=== PATIENT | female | born 1945 | race Caucasian/White ===

== ENCOUNTER → 2017-06-19 | Outpatient (CLI) | payer MEDICARE, MEDICAID ==
[~2017-06-19] MED LIST: /ADVA50050; /ADVA50050 IN; /ESOM40CA OR; /FEXO18TA OR; /FEXO18TA PO; /PANT40TA; ADV500INH INH; ADVAIR INH; ALBU83IN; AMLO5TAB2 PO; BIMA01SOL OU; BRIM1OPD; BRIM1OPD OU; BYST5TAB2 PO; CALCCHW12 OR; CLARINEX; CLOP75TA2 PO; COLA100C2; COLA100C2 PO; DOCU100C16 PO; DOXY100T PO; FERR32TA PO; GLUC1000; HYDR25TA6; HYZAAR; Hyzaar PO; LEVA250T; LEVAINH INH; LOSA100T36 PO; MAG-TAB; METF10004 PO; METFPOW4 PO; NEXI20CA PO; OS-CTAB6 PO; PAIN325T PO; PLAV75TA2; PRED20TA; ROSU10TA; SING10TA32 PO; TOPI25TA2 OR; TOPI50TA PO; TOPI50TA9 PO; TOPIPOW3; TYLE325T5 PO; TYLENOL #3 PO; VERA180T9 OR; XALATAN OPHT; XALATAN OPTH OP; XOPENEX; ZOCO5TAB OR
--- NOTE | 2017-06-19 09:21 | REPMRS ---
Patient History The patient states she has not had a clinical breast exam in over a year. Patient is postmenopausal. Family history of colorectal cancer in sister at age 50 or over, colorectal cancer in brother at age 50 or over, prostate cancer in brother at age 50 or over, and breast cancer in 2 nieces under age 50. Benign excisional biopsy of the left breast, 1970. Digital Woman Screen Mammo: June 19, 2017 - Exam #: [id number] Bilateral CC and MLO view(s) were taken. Technologist: Myrna Vernon, Technologist Prior study comparison: June 12, 2016, digital woman screen mammo performed at [facility]. June 08, 2015, digital woman screen mammo performed at [facility]. September 15, 2013, digital woman screen mammo performed at [facility]. FINDINGS: There are scattered fibroglandular densities. There has been no change in the appearance of the mammogram from the prior studies. There is a mild amount of scattered fibroglandular density which is fairly symmetric. There is no interval development of dominant mass, architectural distortion, or clustered microcalcification suggestive of malignancy. ASSESSMENT: BI-RADS/ACR category 1 mammogram. Negative. Recommendation Routine screening mammogram in 1 year (for women over age 40). This mammogram was interpreted with the aid of an FDA-approved computer-aided dectection system. Electronically Signed By: Jozef Null MD 06/19/17 0942
== END ==
LOC: M WHC 07:55
PROVIDERS: ATTEND Family Medicine
DX: Z12.31 Encounter for screening mammogram for malignant neoplasm of breast (principal); Z80.3 Family history of malignant neoplasm of breast; Z80.0 Family history of malignant neoplasm of digestive organs

== ENCOUNTER 2017-09-28 11:53 | Emergency (ER) | payer MEDICARE, MEDICAID ==
[~2017-09-28] VITALS: Ht 149.9 cm; Wt 55.5 kg
[2017-09-28] MEDS ORDERED: PRESCAP6 PO (12:09)
--- NOTE | 2017-09-28 13:01 | REP ---
PA and lateral chest: Comparison is 12/15/2009. The lung aponte are clear. The cardiac size is normal The benjamín, mediastinum, and bony thorax are unremarkable. There is a hiatal hernia, unchanged. Impression: Negative PA and lateral chest. There is a hiatal hernia, unchanged. Signed by Taz Franocis MD 09/28/2017 12:53 P
[2017-09-28] MEDS ORDERED: methylPREDNISolone INJ 125 MG/2 ML VIAL (J2930) IV ONE (13:45)
[2017-09-28] MEDS: IPRATROPIUM 0.5MG/ALBUTEROL 2.5MG INH SOL UD 3ML (DUONEB)(J7620) NEB PRN ×2 (13:56→13:57)
[2017-09-28 14:04] LABS: BASO # 0.1 10^3/uL (0.0-0.2); BASO % 0.7 % (0.0-1.0); EOS % 0.3 % (0.0-3.0); IMMATURE GRANULOCYTE % 0.4 % (0-0); LYMPH # 0.6 10^3/uL (1.5-4.5); MEAN CORPUSCULAR HEMOGLOBIN 32.3 pg (27.0-33.0); MEAN CORPUSCULAR HGB CONC 32.9 g/dl (32.0-36.5); MONO # 0.8 10^3/uL (0.0-0.8); NEUTROPHILS # 5.7 10^3/uL (1.8-7.7); NEUTROPHILS % 79.6 % (36.0-66.0); PLATELET COUNT, AUTOMATED 243 10^3/uL (150-450); RED CELL DISTRIBUTION WIDTH 13.2 % (11.5-14.5); WHITE BLOOD COUNT 7.2 10^3/uL (4.0-10.0)
[2017-09-28 14:30] LABS: ANION GAP 9 MEQ/L (8-16); BLOOD UREA NITROGEN 19 MG/DL (7-18); CALCIUM LEVEL 9.1 MG/DL (8.8-10.2); CARBON DIOXIDE LEVEL 25 MEQ/L (21-32); CHLORIDE LEVEL 101 MEQ/L (98-107); CREATININE FOR GFR 1.26 MG/DL (0.55-1.02); GLOMERULAR FILTRATION RATE 44.3 (>39); GLUCOSE, FASTING 128 MG/DL (83-110); POTASSIUM SERUM 4.1 MEQ/L (3.5-5.1); SODIUM LEVEL 135 MEQ/L (136-145)
[2017-09-28 14:33] LABS: ALBUMIN 3.8 GM/DL (3.2-5.2); ALBUMIN/GLOBULIN RATIO 0.97 (1.00-1.93); ALKALINE PHOSPHATASE 63 U/L (45-117); ALT/SGPT 24 U/L (12-78); AST/SGOT 21 U/L (7-37); BILIRUBIN,DIRECT < 0.1 MG/DL (0.0-0.2); BILIRUBIN,TOTAL 0.3 MG/DL (0.2-1.0); THYROXINE (T4) 11.1 UG/DL (4.5-12.0); TOTAL PROTEIN 7.7 GM/DL (6.4-8.2)
[2017-09-28] MEDS ORDERED: AZITHROMYCIN INJ 500 MG, VIAL MATE ADAPTER 1 EACH in D5W 250 ML IV ONE (15:00)
[2017-09-28] MEDS ORDERED: AZIT500T2 PO (16:03)
[2017-09-28] MEDS ORDERED: PRED10TA2 PO (16:03)
[2017-09-28 16:49] VITALS: BP 130/67
--- NOTE | 2017-09-28 19:41 | ECGEPIP ---
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
== END 2017-09-28 17:08 | disposition home or self-care (01) ==
LOC: M ED 11:53
DX: J44.1 Chronic obstructive pulmonary disease with (acute) exacerbation (principal); B97.4 Respiratory syncytial virus as the cause of diseases classified elsewhere; E11.9 Type 2 diabetes mellitus without complications; I12.9 Hypertensive chronic kidney disease with stage 1 through stage 4 chronic kidney disease, or unspecified chronic kidney disease; N18.9 Chronic kidney disease, unspecified; R25.1 Tremor, unspecified; Z79.01 Long term (current) use of anticoagulants; Z79.899 Other long term (current) drug therapy; Z79.84 Long term (current) use of oral hypoglycemic drugs; Z88.8 Allergy status to other drugs, medicaments and biological substances; Z88.5 Allergy status to narcotic agent; Z88.2 Allergy status to sulfonamides; Z98.890 Other specified postprocedural states
CPT/HCPCS: 71020; 80048; 80076; 82550; 82553; 83605; 83880; 84436; 84443; 84484; 85025; 86140; 87040; 87070; 87077; 87184; 87186; 87205; 87486; 87581; 87633; 87798; 93005; 93041; 94640; 94760; 96374; 96375; 99285; J0456; J2930

== ENCOUNTER → 2017-10-10 | Outpatient (REF) | payer MEDICARE, MEDICAID ==
[2017-10-10 14:02] LABS: URIC ACID 4.4 MG/DL (2.6-6.0)
== END ==
LOC: M LAB REF 12:47
DX: M25.50 Pain in unspecified joint (principal)
CPT/HCPCS: 84550

== ENCOUNTER → 2017-10-18 | Outpatient (REF) | payer MEDICARE, MEDICAID ==
[2017-10-18 13:48] LABS: REASON FOR REVIEW COMPREHENSIVE REVIEW; SLIDE REVIEW Report; SOURCE PERIPHERAL SMEAR
== END ==
LOC: M LAB REF 11:45
DX: D72.829 Elevated white blood cell count, unspecified (principal)

== ENCOUNTER → 2018-03-26 | Outpatient (REF) | payer MEDICARE, MEDICAID ==
[2018-03-26 19:17] LABS: AMYLASE 70 U/L (25-115)
[2018-03-26 19:17] LABS: LIPASE 147 U/L (73-393)
== END ==
LOC: M LAB REF 16:35
DX: R10.13 Epigastric pain (principal)
CPT/HCPCS: 82150

== ENCOUNTER 2018-04-20 10:26 | Emergency (ER) | payer MEDICARE, MEDICAID ==
[2018-04-20 11:10] LABS: BASO % 0.4 % (0.0-1.0); EOS % 0.4 % (0.0-3.0); HEMATOCRIT 36.4 % (36.0-47.0); IMMATURE GRANULOCYTE % 0.4 % (0-3.0); LYMPH # 1.2 10^3/uL (1.5-4.5); LYMPH % 10.6 % (24.0-44.0); MEAN CORPUSCULAR HEMOGLOBIN 32.4 pg (27.0-33.0); MEAN CORPUSCULAR VOLUME 98.4 fl (80.0-96.0); MONO # 1.1 10^3/uL (0.0-0.8); MONO % 9.7 % (0.0-5.0); NEUTROPHILS # 8.8 10^3/uL (1.8-7.7); NEUTROPHILS % 78.5 % (36.0-66.0); PLATELET COUNT, AUTOMATED 282 10^3/uL (150-450); RED CELL DISTRIBUTION WIDTH 13.2 % (11.5-14.5); WHITE BLOOD COUNT 11.2 10^3/uL (4.0-10.0)
[2018-04-20] MEDS: ACETAMINOPHEN 325 MG TAB PO (11:21)
[2018-04-20 11:31] LABS: ANION GAP 7 MEQ/L (8-16); BLOOD UREA NITROGEN 22 MG/DL (7-18); CARBON DIOXIDE LEVEL 26 MEQ/L (21-32); CHLORIDE LEVEL 105 MEQ/L (98-107); CREATININE FOR GFR 1.11 MG/DL (0.55-1.30); GLOMERULAR FILTRATION RATE 51.2 (>39); GLUCOSE, FASTING 150 MG/DL (70-100); SODIUM LEVEL 138 MEQ/L (136-145); URIC ACID 4.2 MG/DL (2.6-6.0)
[2018-04-20 11:55] LABS: ERYTHROCYTE SEDIMENTATION RATE 63 mm/hr (0-30)
[2018-04-23 00:08] LABS: Lyme Disease IgG/IgM Antibodie <0.91 ISR (0.00-0.90); Lyme Disease IgM Ab Quantitati <0.80 index (0.00-0.79)
== END 2018-04-20 12:28 | disposition home or self-care (01) ==
LOC: M ED 10:26
DX: L03.113 Cellulitis of right upper limb (principal); M19.031 Primary osteoarthritis, right wrist; M19.041 Primary osteoarthritis, right hand; I10 Essential (primary) hypertension; E11.9 Type 2 diabetes mellitus without complications; I25.2 Old myocardial infarction; K21.9 Gastro-esophageal reflux disease without esophagitis; M54.5 Low back pain; E78.5 Hyperlipidemia, unspecified; Z86.73 Personal history of transient ischemic attack (TIA), and cerebral infarction without residual deficits; Z88.6 Allergy status to analgesic agent; Z88.5 Allergy status to narcotic agent; Z88.8 Allergy status to other drugs, medicaments and biological substances; Z88.2 Allergy status to sulfonamides; Z79.899 Other long term (current) drug therapy; Z79.02 Long term (current) use of antithrombotics/antiplatelets; Z79.51 Long term (current) use of inhaled steroids; Z79.84 Long term (current) use of oral hypoglycemic drugs
CPT/HCPCS: 73110

== ENCOUNTER 2018-12-09 18:01 | Emergency (ER) | payer MEDICARE, MEDICAID ==
[~2018-12-09] VITALS: Ht 149.9 cm; Wt 56.8 kg
[~2018-12-09 18:01] MED LIST changes: -AMLO5TAB2 PO; +AMLO5TAB6 PO; +ARTH5TAB PO; +ATOR1TAB21; +AZIT500T2 PO; +CLIN150C14 PO; -LOSA100T36 PO; +LOSA100T50 PO; +PRED10TA2 PO; +PRESCAP6 PO
--- NOTE | 2018-12-09 18:48 | REP ---
Clinical: Trauma. Fall. Technique: AP and lateral views of the right humerus. Findings: No acute fracture or dislocation. Age-related degenerative changes at the shoulder and elbow joint noted. Cannot exclude hematoma forming in the soft tissues overlying the mid humeral shaft. No subcutaneous emphysema or foreign body. Impression: 1. No acute fracture dislocation. 2. Possible acute swelling and hematoma in the soft tissues over the mid humeral shaft. Electronically Signed by Dominick Gauthier MD 12/09/2018 06:40 P
[2018-12-09] MEDS ORDERED: ACETAMINOPHEN TAB 650MG DOSE (2X325MG) PO ONE (19:45)
[2018-12-09 20:01] VITALS: BP 195/79
== END 2018-12-09 20:05 | disposition home or self-care (01) ==
LOC: M ED 18:01
DX: S40.021A Contusion of right upper arm, initial encounter (principal); S00.12XA Contusion of left eyelid and periocular area, initial encounter; W51.XXXA Accidental striking against or bumped into by another person, initial encounter; Y92.098 Other place in other non-institutional residence as the place of occurrence of the external cause; I10 Essential (primary) hypertension; E11.9 Type 2 diabetes mellitus without complications; J44.9 Chronic obstructive pulmonary disease, unspecified; E78.00 Pure hypercholesterolemia, unspecified; Z86.73 Personal history of transient ischemic attack (TIA), and cerebral infarction without residual deficits; Z79.899 Other long term (current) drug therapy; Z79.02 Long term (current) use of antithrombotics/antiplatelets; Z79.51 Long term (current) use of inhaled steroids; Z79.84 Long term (current) use of oral hypoglycemic drugs; Z88.8 Allergy status to other drugs, medicaments and biological substances; Z88.5 Allergy status to narcotic agent; Z88.2 Allergy status to sulfonamides

== ENCOUNTER 2019-05-21 16:51 | Emergency (ER) | payer MEDICARE, MEDICAID ==
[~2019-05-21] VITALS: Ht 149.9 cm; Wt 59.1 kg
[~2019-05-21 16:51] MED LIST changes: -/ADVA50050; -/ADVA50050 IN; -/ESOM40CA OR; -/PANT40TA; +ADVA1AER2; +ADVA1AER2 IN; -ARTH5TAB PO; +ARTH650T23 PO; +CRES10TA32; +NEXI1CAP3 OR; +PROT1TAB2; -ROSU10TA
--- NOTE | 2019-05-21 18:48 | REP ---
LEFT HAND SERIES, FOUR VIEWS: Four views of the left hand performed. There is no acute fracture or dislocation. There is mild chondrocalcinosis distal to the ulna. Small round calcific density adjacent to the ulnar styloid may represent an old avulsion fracture. There is mild diffuse narrowing of the interphalangeal joints. No osseous destruction is seen. IMPRESSION: Degenerative changes without fracture or osseous destruction. Electronically Signed by Taz Ambriz MD 05/22/2019 09:54 A
[2019-05-21] MEDS ORDERED: ACETAMINOPHEN 325 MG/10.15 ML UDC PO ONE (20:30)
[2019-05-21] MEDS ORDERED: CLEO300C2 PO (20:30)
[2019-05-21] MEDS ORDERED: CLINDAMYCIN 150 MG CAP PO ONE (20:30)
[2019-05-21 21:08] VITALS: BP 168/70
== END 2019-05-21 21:20 | disposition home or self-care (01) ==
LOC: M ED 16:51
DX: L03.114 Cellulitis of left upper limb (principal); E11.9 Type 2 diabetes mellitus without complications; I10 Essential (primary) hypertension; I25.2 Old myocardial infarction; E78.5 Hyperlipidemia, unspecified; J44.9 Chronic obstructive pulmonary disease, unspecified; K21.9 Gastro-esophageal reflux disease without esophagitis; M54.9 Dorsalgia, unspecified; J45.909 Unspecified asthma, uncomplicated; Z86.73 Personal history of transient ischemic attack (TIA), and cerebral infarction without residual deficits; R25.1 Tremor, unspecified; Z86.14 Personal history of Methicillin resistant Staphylococcus aureus infection; Z88.2 Allergy status to sulfonamides; Z88.5 Allergy status to narcotic agent; Z88.6 Allergy status to analgesic agent; Z88.8 Allergy status to other drugs, medicaments and biological substances; Z79.899 Other long term (current) drug therapy; Z79.02 Long term (current) use of antithrombotics/antiplatelets; Z79.51 Long term (current) use of inhaled steroids; Z79.84 Long term (current) use of oral hypoglycemic drugs

== ENCOUNTER → 2019-06-02 | Outpatient (REF) | payer MEDICARE, MEDICAID ==
[~2019-06-02] MED LIST changes: +CLEO300C2 PO
== END ==
LOC: M LAB REF 12:59
PROVIDERS: ATTEND Family Medicine
DX: E83.52 Hypercalcemia (principal)

== ENCOUNTER 2019-07-18 14:02 | Emergency (ER) | payer MEDICARE, MEDICAID ==
[~2019-07-18] VITALS: Ht 149.9 cm; Wt 59.1 kg
[2019-07-18] MEDS ORDERED: GABA-1171 PO (14:29)
[2019-07-18] MEDS ORDERED: OMEP-218 PO (14:29)
[2019-07-18] MEDS ORDERED: TAB-TAB3 PO (14:29)
[2019-07-18] MEDS ORDERED: traMADol 50 MG TAB PO ONE (15:15)
--- NOTE | 2019-07-18 16:23 | REP ---
Right hand two views: There is no fracture or dislocation. There is demineralization. 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 There are faintly visible calcifications lateral to the middle finger metacarpal head. These are nonspecific and could be degenerative, post-traumatic or ligamentous. Electronically Signed by Taz Francois MD 07/18/2019 04:14 P
[2019-07-18] MEDS ORDERED: TRAM50TA2 PO (16:36)
[2019-07-18] MEDS ORDERED: CLEO300C2 PO (16:36)
[2019-07-18 16:42] VITALS: BP 195/93
== END 2019-07-18 16:48 | disposition home or self-care (01) ==
LOC: M ED 14:02
DX: L03.113 Cellulitis of right upper limb (principal); E11.9 Type 2 diabetes mellitus without complications; J45.909 Unspecified asthma, uncomplicated; J44.9 Chronic obstructive pulmonary disease, unspecified; I10 Essential (primary) hypertension; Z86.73 Personal history of transient ischemic attack (TIA), and cerebral infarction without residual deficits; K21.9 Gastro-esophageal reflux disease without esophagitis; Z88.2 Allergy status to sulfonamides; Z88.5 Allergy status to narcotic agent; Z88.8 Allergy status to other drugs, medicaments and biological substances; Z79.899 Other long term (current) drug therapy

== ENCOUNTER → 2019-09-02 | Outpatient (REF) | payer MEDICARE, MEDICAID ==
[~2019-09-02] MED LIST changes: -AZIT500T2 PO; +AZIT500T5 PO; +GABA-1171 PO; +OMEP-218 PO; +TAB-TAB3 PO; +TRAM50TA2 PO
[2019-09-02 16:00] LABS: BASO # 0.1 10^3/uL (0.0-0.2); BASO % 0.7 % (0.0-1.0); EOS # 0.3 10^3/uL (0.0-0.5); HEMATOCRIT 35.9 % (36.0-47.0); HEMOGLOBIN 11.5 g/dl (12.0-15.5); LYMPH # 1.6 10^3/uL (1.5-5.0); LYMPH % 17.3 % (24.0-44.0); MEAN CORPUSCULAR HEMOGLOBIN 31.9 pg (27.0-33.0); MEAN CORPUSCULAR VOLUME 99.4 fl (80.0-96.0); MONO # 0.8 10^3/uL (0.0-0.8); MONO % 8.1 % (0.0-5.0); NEUTROPHILS # 6.5 10^3/uL (1.5-8.5); NEUTROPHILS % 70.4 % (36.0-66.0); PLATELET COUNT, AUTOMATED 144 10^3/uL (150-450); RED BLOOD COUNT 3.61 10^6/uL (4.00-5.40); WHITE BLOOD COUNT 9.2 10^3/uL (4.0-10.0)
[2019-09-02 16:04] LABS: RHEUMATOID FACTOR QUANT < 10.0 IU/ML (<15.0)
[2019-09-02 16:17] LABS: FOLATE > 24.0 NG/ML; VITAMIN B12 LEVEL 255 PG/ML
[2019-09-02 16:31] LABS: ERYTHROCYTE SEDIMENTATION RATE 43 mm/hr (0-30)
[2019-09-05 00:16] LABS: ANTINUCLEAR ANTIBODIES DIRECT Negative (Negative); Lyme Disease IgG/IgM Antibodie <0.91 ISR (0.00-0.90); Lyme Disease IgM Ab Quantitati <0.80 index (0.00-0.79)
== END ==
LOC: M LABDRAW1 15:23
PROVIDERS: ATTEND Physician Assistant Medical
DX: R51 Headache (principal); M25.539 Pain in unspecified wrist; M25.549 Pain in joints of unspecified hand

== ENCOUNTER → 2020-12-23 | Outpatient (REF) | payer MEDICARE, MEDICAID ==
[~2020-12-23] MED LIST changes: +AMLO1TAB24 PO; -AMLO5TAB6 PO; -CLIN150C14 PO; +CLIN150C15 PO
[2020-12-23 16:50] LABS: INR 0.93; PROTHROMBIN TIME 12.7 SECONDS (12.5-14.3)
[2020-12-23 16:51] LABS: PARTIAL THROMBOPLASTIN TIME 29.3 SECONDS (24.2-38.5)
== END ==
LOC: M LAB REF 16:16
PROVIDERS: ATTEND Family Medicine
DX: Z01.818 Encounter for other preprocedural examination (principal); Z79.01 Long term (current) use of anticoagulants

== ENCOUNTER → 2021-07-26 | Outpatient (CLI) | payer MEDICARE, MEDICAID ==
[~2021-07-26] MED LIST changes: +APAP325T4 PO; -ATOR1TAB21; +ATOR1TAB21 PO; -CLIN150C15 PO; +CLIN150C17 PO; +OYST500T12 PO; +PRES10CA2 PO; +XARE15TA PO
--- NOTE | 2021-07-26 12:54 | REP ---
INDICATION: RUQ PAIN COMPARISON: None. TECHNIQUE: Supine views of the abdomen and pelvis. FINDINGS: Findings suggest fecal stasis and presumed constipation. No bowel obstruction or perforation. No organomegaly. Skeletal structures demonstrate age-related degenerative changes. IMPRESSION: Moderate fecal stasis and constipation. <Electronically signed by Dominick Gauthier > 07/26/21 1428
== END ==
LOC: M WUC 12:15
PROVIDERS: ATTEND Family Medicine
DX: K59.00 Constipation, unspecified (principal)

== ENCOUNTER → 2021-08-04 | Outpatient (CLI) | payer MEDICARE, MEDICAID ==
--- NOTE | 2021-08-04 10:49 | REPMRS ---
Patient History The patient states she has not had a clinical breast exam in over a year. Patient is postmenopausal. Family history of colorectal cancer at age 50 or over in sister, breast cancer under age 50 in niece, breast cancer under age 50 in niece, colorectal cancer at age 50 or over and prostate cancer at age 50 or over in brother, breast cancer at age 51 in daughter. Benign excisional biopsy of the left breast, 1969. Patient states no breast complaints today. Patient has signed MRS History Sheet. Digital Woman Screen Mammo: August 04, 2021 - Exam #: [id number] Bilateral CC and MLO view(s) were taken. Technologist: Meli Navarro, Technologist Prior study comparison: June 19, 2017, digital woman screen mammo performed at [facility]. June 12, 2016, digital woman screen mammo performed at [facility]. FINDINGS: There are scattered fibroglandular densities. Screening. Digital screening (2D) mammography was performed bilaterally in the CC and MLO projections. Additionally, breast tomosynthesis (3D mammography) was performed bilaterally in the CC and MLO projections. Todays exam was compared to the prior exam/exams.There are no prior DBT images for comparison. By history, the patient has no complaints of a palpable breast abnormality or other significant breast complaints. The breasts are unchanged in size and shape. There are no prasanth-soft tissue densities or spiculated masses. There is no internal architectural distortion. Once again, stable benign appearing calcifications are seen.There are no suspicious prasanth-calcific clusters. Skin thickening or nipple retraction is not present. IMPRESSION: BI-RADS Category 2- Benign Findings. There is no evidence of malignant alteration of the breasts. Followup examination recommended in one year. The Volpara volumetric breast density category is B, there are scattered areas of fibroglandular densities. This mammogram was read with the assistance of [employer],an FDA approved computer aided detection system for mammography. The lifetime Tyrer-Cuzick score is 4.6 % Negative x-ray reports should not delay surgical consultation if a dominant or clinically suspicious mass is present. Not all breast cancers can be identified by mammography. Therefore, we recommend that you continue to perform regular breast self-examination and physical examination and then promptly contact your physician of any concerns or changes. Adenosis and dense breasts may obscure an underlying neoplasm. Assessment: BI-RADS/ACR category 2 mammogram. Benign Findings. Recommendation Routine screening mammogram of both breasts in 1 year. Electronically Signed By: Kishor Peña DO 08/04/21 1049
== END ==
LOC: M WHC 09:34
PROVIDERS: ATTEND Family Medicine
DX: Z12.31 Encounter for screening mammogram for malignant neoplasm of breast (principal)

== ENCOUNTER → 2021-09-01 | Outpatient (CLI) | payer MEDICARE, MEDICAID ==
[~2021-09-01] MED LIST changes: +CEFD300CAP PO; +FLOM0.4C39 PO; +GLIP-163 PO; +GLYB125TA PO; +IPRA3SP NARES; +PT COMMENT; +RISATAB3 PO; +XARE20TA PO
--- NOTE | 2021-09-01 09:20 | REP ---
INDICATION: COUGH COMPARISON: 03/27/2021 TECHNIQUE: PA and lateral. FINDINGS: The mediastinum and cardiac silhouette are normal. The lung aponte demonstrate stable chronic changes without acute consolidation, effusion, or pneumothorax. The skeletal structures are intact and normal. IMPRESSION: Stable chronic changes. No obvious acute consolidation. <Electronically signed by Dominick Gauthier > 09/01/21 0978
== END ==
LOC: M WUC 08:18
PROVIDERS: ATTEND Family Medicine
DX: R05.9 Cough, unspecified (principal)

== ENCOUNTER 2021-10-07 10:48 | Inpatient (IN) | payer MEDICARE, MEDICAID ==
[~2021-10-07] VITALS: Ht 165.1 cm; Wt 61.5 kg
[~2021-10-07 10:48] MED LIST changes: -CEFD300CAP PO; -FLOM0.4C39 PO; -GLIP-163 PO; -GLYB125TA PO; -IPRA3SP NARES; -PT COMMENT; -RISATAB3 PO; -XARE20TA PO
[2021-10-07] MEDS ORDERED: NS 500 ML IV ONE ×2 (11:05→12:30)
[2021-10-07] MEDS ORDERED: ALBUTEROL SULFATE 2.5 MG/0.5 ML INH NEB SOLN INH ONE (11:35)
[2021-10-07] MEDS ORDERED: methylPREDNISolone 40MG 1ML VIAL IV ONE (11:35)
[2021-10-07] MEDS ORDERED: methylPREDNISolone 125MG 2ML VIAL IV ONE (11:35)
[2021-10-07] MEDS ORDERED: IPRATROPIUM 0.5MG/ALBUTEROL 2.5MG INH SOL UD 3ML (DUONEB) NEB ONE (11:35)
[2021-10-07 11:37] LABS: ABG BASE EXCESS -1.3 (-2.0-2.0); ABG HCO3 21.4 MEQ/L (22.0-26.0); ABG O2 SATURATION 88.7 % (95.0-99.0); ABG PARTIAL PRESSURE CO2 30.2 mmHg (35.0-45.0); ABG PARTIAL PRESSURE O2 54.4 mmHg (75.0-100.0); ABG STANDARD HCO3 23.2 MEQ/L (22.0-26.0); ABG TOTAL CO2 22.4 MEQ/L (23.0-31.0); ABG pH (ARTERIAL) 7.469 UNITS (7.350-7.450)
[2021-10-07 11:43] LABS: HEMATOCRIT 36.3 % (36.0-47.0); MEAN CORPUSCULAR HEMOGLOBIN 31.8 pg (27.0-33.0); MEAN CORPUSCULAR HGB CONC 33.1 g/dl (32.0-36.5); MEAN CORPUSCULAR VOLUME 96.3 fl (80.0-96.0); RED BLOOD COUNT 3.77 10^6/uL (4.00-5.40)
--- NOTE | 2021-10-07 11:49 | REP ---
INDICATION: Altered Mental Status COMPARISON: MRI of the brain dated 05/22/2006 TECHNIQUE: Axial noncontrast images from the skull base to the thoracic inlet with coronal reformations. This CT examination was performed using the following dose reduction techniques: Automated exposure control, adjustment of mA and/or kv according to the patient's size, and use of iterative reconstruction technique. FINDINGS: Atrophy with periventricular leukomalacia and microvascular ischemic changes are appreciated. Findings include small nonacute lacunar infarcts primarily noted in the right basal ganglia. The ventricles and sulci are symmetric. Ambriz-white differentiation is maintained. There is no evidence for acute intracranial hemorrhage, mass/mass effect, pathology or infarction. No extra-axial fluid collection. Calvarium is intact. Paranasal sinuses and mastoid air cells are clear. IMPRESSION: Atrophy and chronic microvascular ischemic changes. No acute intracranial hemorrhage, infarction, or mass/mass effect. <Electronically signed by Dominick Gauthier > 10/07/21 [id number]
--- NOTE | 2021-10-07 11:51 | REP ---
INDICATION: Altered Mental Status COMPARISON: None. TECHNIQUE: Axial noncontrast images from the skull base to the thoracic inlet with coronal and sagittal re-formations This CT examination was performed using the following dose reduction techniques: Automated exposure control, adjustment of mA and/or kv according to the patient's size, and use of iterative reconstruction technique. FINDINGS: Advanced multilevel degenerative changes include osteophytosis, endplate sclerosis, disc space narrowing, facet hypertrophy. Focal chronic canal stenosis due to posterior elements at the C5-6 level measures 7.5 mm AP diameter. Small posterior disc bulges are also identified primarily at C5-6 and C6-7. Alignment and lordosis maintained. No acute fracture/compression injury or subluxation. IMPRESSION: Moderate to advanced multilevel degenerative spondylosis. No evidence for acute pathology or trauma/injury. <Electronically signed by Dominick Gauthier > 10/07/21 1030
[2021-10-07] MEDS ORDERED: PIPERACILLIN/TAZOBACTAM SOD 4.5 GM in D5W MINI-BAG PLUS 50 ML IV ONE (12:05)
[2021-10-07 12:06] LABS: LYMPHOCYTES 1 % (16-44); MONOCYTES 4 % (0-5); NEUTROPHILS 83 % (28-66)
[2021-10-07 12:07] LABS: PLATELET ESTIMATE INVALID (NORMAL)
[2021-10-07 12:08] LABS: PLATELET CLUMPS MODERATE AMT
--- NOTE | 2021-10-07 12:10 | REP ---
INDICATION: Altered Mental Status COMPARISON: None. TECHNIQUE: Single AP view of the pelvis. FINDINGS: Age-related degenerative changes are appreciated. There is no evidence for acute fracture or dislocation. IMPRESSION: Degenerative changes. No acute fracture or dislocation. <Electronically signed by Dominick Gauthier > 10/07/21 0451
--- NOTE | 2021-10-07 12:11 | REP ---
INDICATION: fall COMPARISON: None. TECHNIQUE: AP and frog-lateral views of the right hip FINDINGS: Generalized age-related changes include increased sclerosis to the acetabulum with joint space narrowing and marginal spurring. No evidence for acute or healed injury. Surrounding soft tissues are normal. Peripheral vascular disease noted. IMPRESSION: Degenerative changes. No acute fracture or dislocation. <Electronically signed by Dominick Gauthier > 10/07/21 5613
--- NOTE | 2021-10-07 12:12 | REP ---
INDICATION: Altered Mental Status COMPARISON: None. TECHNIQUE: AP, lateral views right tibia/fibular. FINDINGS: The osseous structures and joint spaces are intact. There is no evidence for acute fracture or dislocation. Surrounding soft tissues are unremarkable. No subcutaneous emphysema or radiodense foreign body. IMPRESSION: No acute fracture or dislocation. <Electronically signed by Dominick Gauthier > 10/07/21 2568
--- NOTE | 2021-10-07 12:17 | REP ---
INDICATION: Altered Mental Status COMPARISON: 09/01/2021 TECHNIQUE: Portable AP view of the chest FINDINGS: Mediastinum and cardiac silhouette are within normal limits and stable. Subtle perihilar and lower lobe opacities are suggested (right greater than left) including small right pleural effusion. No pneumothorax. IMPRESSION: Bibasilar airspace disease with small right pleural effusion. <Electronically signed by Dominick Gauthier > 10/07/21 5416
--- NOTE | 2021-10-07 12:18 | ECGEPIP ---
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
--- NOTE | 2021-10-07 12:19 | REP ---
INDICATION: Altered Mental Status COMPARISON: None. TECHNIQUE: Limited AP and lateral views of the mid to distal right femur FINDINGS: Visualized osseous structures demonstrates no obvious acute fracture or dislocation. Degenerative changes at the knee joint are suggested. Peripheral vascular disease noted. IMPRESSION: Limited examination without evidence for acute fracture to the visualized osseous structures. <Electronically signed by Dominick Gauthier > 10/07/21 [id number]
--- NOTE | 2021-10-07 12:23 | REP ---
INDICATION: Altered Mental Status COMPARISON: None. TECHNIQUE: AP, lateral, bilateral oblique views of the right knee. FINDINGS: Moderate tricompartmental osteoarthritic degenerative changes include cortical irregularity and early spurring/osteophyte formation as well as chondrocalcinosis and minimal joint space narrowing. No obvious acute fracture or dislocation. IMPRESSION: Moderate tricompartmental osteoarthritic degenerative changes. No obvious acute fracture or dislocation. <Electronically signed by Dominick Gauthier > 10/07/21 8204
[2021-10-07 12:26] LABS: ACETAMINOPHEN LEVEL < 2.0 UG/ML (10.0-30.0); ALBUMIN 2.5 GM/DL (3.2-5.2); ALT/SGPT 29 U/L (12-78); BILIRUBIN,DIRECT < 0.1 MG/DL (0.0-0.2); BILIRUBIN,TOTAL 0.3 MG/DL (0.2-1.0); BLOOD UREA NITROGEN 56 MG/DL (7-18); CARBON DIOXIDE LEVEL 22 MEQ/L (21-32); CHLORIDE LEVEL 109 MEQ/L (98-107); CREATININE FOR GFR 2.83 MG/DL (0.55-1.30); ETHYL ALCOHOL (ETHANOL) < 0.003 % (0.000-0.010); GLOMERULAR FILTRATION RATE 17.2 (>39); GLUCOSE, FASTING 185 MG/DL (70-100); POTASSIUM SERUM 4.6 MEQ/L (3.5-5.1); SALICYLATE LEVEL < 1.7 MG/DL (5.0-30.0); SODIUM LEVEL 141 MEQ/L (136-145); THYROID STIMULATING HORMONE 0.617 uIU/ML (0.358-3.740)
[2021-10-07 12:28] LABS: RSV AMPLIFICATION NEGATIVE (NEGATIVE)
[2021-10-07 12:32] LABS: CK-MB VALUE MASS 5.1 NG/ML (<3.6); MB/CK RELATIVE INDEX 0.3 (< OR =4)
[2021-10-07] MEDS ORDERED: BOOSTRIX/ADACEL VACCINE (DIPHTH/PERTUSS/ACELL/TETANUS) 0.5ML SYR IM ONE (13:20)
[2021-10-07 13:23] LABS: AMPHETAMINES LEVEL URINE NEGATIVE (NEGATIVE); BARBITURATES URINE NEGATIVE (NEGATIVE); BENZODIAZEPINES URINE NEGATIVE (NEGATIVE); CANNABINOIDS URINE NEGATIVE (NEGATIVE); COCAINE METABOLITE URINE NEGATIVE (NEGATIVE); METHADONE URINE NEGATIVE (NEGATIVE); OPIATES URINE NEGATIVE (NEGATIVE); PHENCYCLIDINE URINE NEGATIVE (NEGATIVE)
[2021-10-07 13:25] LABS: BILIRUBIN, URINE MANUAL NEGATIVE (NEGATIVE); GLUCOSE, URINE (UA) MANUAL NEGATIVE (NEGATIVE); KETONE, URINE MANUAL NEGATIVE (NEGATIVE); UROBILINOGEN, URINE MANUAL NORMAL (NORMAL)
[2021-10-07] MEDS ORDERED: ACETAMINOPHEN TAB 650MG DOSE (2X325MG) PO PRN (13:25)
[2021-10-07 13:27] LABS: RBC, URINE NONE SEEN /hpf (0-3); SQUAMOUS EPITHELIAL CELL URINE NONE SEEN /hpf (SMALL AMT)
[2021-10-07 13:28] LABS: BACTERIA, URINE LARGE AMOUNT; HYALINE CAST, URINE NONE SEEN /lpf (0-1)
[2021-10-07] MEDS ORDERED: DEXTROSE 50% 50 ML SYRINGE IV PRN (13:30)
[2021-10-07] MEDS ORDERED: GLUCAGON INJ 1MG VIAL SC PRN (13:30)
[2021-10-07] MEDS ORDERED: GLUCOSE 4GM CHEW TABLET PO PRN (13:30)
[2021-10-07] MEDS ORDERED: BIMA01SOL OU (13:41)
[2021-10-07] MEDS ORDERED: ADV500INH INH (13:42)
[2021-10-07] MEDS ORDERED: IPRA3SP NARES (13:42)
[2021-10-07] MEDS ORDERED: XARE20TA PO (13:47)
[2021-10-07] MEDS ORDERED: BRIM1OPD OU (13:50)
[2021-10-07] MEDS ORDERED: PT COMMENT (13:51)
[2021-10-07] MEDS ORDERED: HOME MED LIST COMPLETE! XX SCH (13:55)
--- NOTE | 2021-10-07 13:57 | REP ---
INDICATION: FALL ON XARELTO ABD /FLANK PAIN R/O HEMATOMA COMPARISON: 07/02/2015 TECHNIQUE: Axial noncontrast images from the lung bases to the pubic symphysis with coronal and sagittal reformations. This CT examination was performed using the following dose reduction techniques: Automated exposure control, adjustment of mA and/or kv according to the patient's size, and use of iterative reconstruction technique. FINDINGS: Lung bases demonstrate bibasilar atelectasis and small right pleural effusion along with moderate hiatal hernia. Liver, spleen, pancreas, gallbladder, bilateral adrenal glands and left kidney are relatively normal. There is mild asymmetric enlargement to the right kidney with perinephric stranding and hydroureteronephrosis secondary to a 4 mm obstructing calculus at the ureterovesical junction (series 201; images 125-126). The enteric system is unremarkable and without obstruction or acute inflammatory process. Pelvis demonstrates normal bladder and age-appropriate uterus/adnexa. No ascites. No free air. No adenopathy. Significant atherosclerotic changes to the aorta and vasculature without aneurysm. Musculoskeletal structures demonstrate degenerative changes without acute osseous abnormality. IMPRESSION: 1. Acute right-sided obstructive uropathy with a 4 mm obstructing calculus at the ureterovesical junction. 2. Moderate bibasilar atelectasis and small right pleural effusion. 3. Nonacute findings as described above. <Electronically signed by Dominick Gauthier > 10/07/21 7257
[2021-10-07] MEDS ORDERED: NS 1,000 ML IV ONE (14:00)
[2021-10-07] MEDS ORDERED: VANCOMYCIN HCL 1,000 MG, VIAL MATE ADAPTER 1 EACH in NS 250 ML IV ONE (15:00)
[2021-10-07 15:10] VITALS: BP 151/67
[2021-10-07] MEDS: NS 1,000 ML IV SCH (15:59)
[2021-10-07 17:08] LABS: INR 1.59; PROTHROMBIN TIME 19.3 SECONDS (12.7-14.5)
[2021-10-07 17:09] LABS: PARTIAL THROMBOPLASTIN TIME 37.4 SECONDS (25.9-37.0)
[2021-10-07 17:22] LABS: C REACTIVE PROTEIN QUANTITATIV 34.3 MG/DL (0.00-0.30)
[2021-10-07] MEDS ORDERED: LEVALBUTEROL HFA 45MCG/ACT 15 GM INHALER INH PRN (17:30)
[2021-10-07] MEDS ORDERED: HumaLOG INSULIN (NovoLOG) PER UNIT SC SCH ×2 (17:30→21:00)
[2021-10-07 17:40] LABS: CALCIUM LEVEL 9.9 MG/DL (8.8-10.2); CREATININE FOR GFR 2.92 MG/DL (0.55-1.30); GLOMERULAR FILTRATION RATE 16.6 (>39); POTASSIUM SERUM 4.2 MEQ/L (3.5-5.1)
[2021-10-07] MEDS ORDERED: cefTRIAXone SOD 1 GM in D5W MINI-BAG PLUS 50 ML IV SCH (18:00)
[2021-10-07] MEDS ORDERED: PIPERACILLIN/TAZOBACTAM SOD 2.25 GM in D5W MINI-BAG PLUS 50 ML IV SCH (18:00)
[2021-10-07] MEDS: LACTOBACILLUS ACIDOPHILUS CAP (BACID) PO SCH ×2 (18:03→20:31)
--- NOTE | 2021-10-07 18:06 | HPEPDOC ---
[facility] Medical History & Physical Date of Admission Oct 07, 2021 Date of Service: Oct 07, 2021 History and Physical CHIEF COMPLAINT: fall, unable to get up HISTORY OF PRESENT ILLNESS:(pt confused, history obtained from daughter [place] by phone [phone] 76 y/o female w h/o cva, PE march 2021 on xarelto, cad, ckd3 baseline creatinine 1.26 brought in by EMS after family called finding pt on the ground, last known to be normal at 5am this morning when the neighbors heard her moaning. Pt had a fall and could not get up. Her daughter [place] found her on the ground in her bedroom lying on her right side after hitting her head on a stool, with vomit on the floor. Pt scraped her right knee and had an abrasion on her right hip. She answered questions appropriately saying that she was a little short of breath, felt dizzy when she first got up . [facility] pulmonary function test to evaluate for her worsening dyspnea on exertion despite being on xarelto for PE found in March. They found that despite not being a smoker, she was found to have COPD and given nebulizer at home. On , daughter said she was not herself and was not talkative in the car, c/o feeling tired. Pt tried to be compliant with her meds , using a pill box, but was not able to take her meds this am bc of her fall. Pt did c/o productive cough of thick brown sputum w/o fever, chest pain, or abd pain. She noticed foul smelling urine but no hematuria, frequency,flank pain, chills or urgency. In the ER, pt was 89% on room air, wbc 34, abn UA, lactic acidosis, tachycardic,EKG sinus , fingerstick 197, creatinine 2.8 from baseline 1.26. negative for covid. no fracture of cervical spine, hip, knees. Hospitalist was asked to admit for acute on ckd, rhabdomyolysis, acute right pyelonephritis, sepsis, and pt was given iv zosyn, and continued on ceftriaxone and vanco as inpt. REVIEW OF SYSTEMS: 12-point review of systems negative except as listed in HPI PAST MEDICAL HISTORY: HTN DM2 CAD MO COPD PE Grade 1 LV diastolic dysfxn ef 60-65% 2.2 cm right renal cyst small calcified gallstone aortic atherosclerosis EGD extraction of foreign body ingestion/dysphagia ASTHMA Pneumonia glaucoma Gi bleed Ayala's palsy tremors CVA CKD3 MRSA left axillary DLP GERD Colon adenoma Bladder prolapse Hiatal hernia s/p eddie fundoplication Rhinitis hemorrhoids sessile colonic polyps diverticulosis cervical stenosis post menopausal bleeding s/p Dilation and curretage seasonal allergies PAST SURGICAL HISTORY: Bladder prolapse w pessary Appendectomy tonsillectomy w adenoidectomy cataract surgery Eddie fundoplication D&C Laminectomy Colonoscopy HOME MEDICATIONS: SEE BELOW SOCIAL HISTORY: she doesnt smoke drink or use alcohol FAMILY HISTORY: colon cancer ALLERGIES: Please see below. HOME MEDICATIONS: Please see below. PHYSICAL EXAMINATION: VITAL SIGNS: Please see below. GENERAL APPEARANCE: confused HEENT: moist mm no thyromegaly or cervical LAD CARDIOVASCULAR: S1S2 Sinus tachycardia no murmurs noted LUNGS: diminished, bibasilar rhonchi ABD:+ bs soft no rebound or guarding no hsm EXT:no cyanosis, or edema. skintear right lateral knee. EKG: SINUS TACH 106 lad, lafb, lvh nonspecific st-t changes LABORATORY DATA, IMAGING STUDIES, MICROBIOLOGY: SEE BELOW ASSESSMENT AND PLAN: Sepsis/Acute pyelonephritis/lactic acidosis -given zosyn in ER. continue on ceftriaxone. total 10-14 days abx -await urine cx and blood cx sensitivities -empiric vanco for now w h/o mrsa. check mrsa screen -deescalate abx on ce cultures are finalized -recheck lactic acid -ivfluids Acute right Obstructive Uropathy /4mm stone at the ureterovesical junction. -s/p iv zosyn . continue ceftriaxone. -ivfluids. urology recommends ivfluids if heart can tolerate,bc stone almost pushed out and does not need emergent cystoscopy with stone extraction or stent. -donaldson . strict i/o. Acute metabolic encephalopathy with aspiration risk -glucose 197 on field per ems. -due to pyelonephritis, sepsis, renal failure -speech eval to rule out aspiration -h/o dysphagia, pureed diet for now. Fall/Acute rhabdomyolysis/Acute on chronic renal failure -donaldson, strict i/o -ivfluids Suspected community acquired pneumonia -sputum cx, blood cx sent, urine legionella ag, urine strep pneumo -on iv vanco due to h/o mrsa, on ceftriaxone, but may need to increase to 2 grams for pna instead of 1 gram for pyelonephritis. HTN -hold parameters if sbp<100mmhg DM2 -hypoglycemic protocol . sliding scale with coverage, fingersticks qachs CAD MO/grade 1 LV diastolic chf EF 65%/aortic atherosclerosis -monitor respiratory status while on ivfluids for sepsis to prevent fluid overload -donaldson, strict i/o, weigh daily COPD/Asthma/ history of PE -resume xarelto and nebs h/o CVA -ct head no ich h/o MRSA left axillaryabscess s/p incision and drainage -check mrsa screen, contact precautions DLP -hold statin until mental status improves GERD/ h/o hiatal hernia w eddie fundoplication/ h/o foreign body ingestion needing extraction by EGD Vital Signs Vital Signs Date Time Temp Pulse Resp B/P (MAP) Pulse Ox O2 Delivery O2 Flow Rate FiO2 10/07/21 11:06 99.7 106 18 138/62 (87) 96 Room Air Laboratory Data Labs 24H Laboratory Tests 2 10/07/21 11:05: Neutrophils (%) (Auto) , Nucleated Red Blood Cells % (auto) 0.0, Neutrophils 83H, Band Neutrophils 12H, Lymphocytes (Manual) 1L, Monocytes (Manual) 4, Platelet Estimate INVALID, Clumped Platelets MODERATE AMT, Anion Gap 10, Glomerular Filtration Rate 17.2L, Lactic Acid Level 2.6*H, Calcium Level 10.0, Total Bilirubin 0.3, Direct Bilirubin < 0.1, Aspartate Amino Transf (AST/SGOT) 74H, Alanine Aminotransferase (ALT/SGPT) 29, Alkaline Phosphatase 100, Total Protein 6.0L, Albumin 2.5L, Albumin/Globulin Ratio 0.7L, Thyroid Stimulating Hormone (TSH) 0.617, Salicylates Level < 1.7L, Urine Opiates Screen NEGATIVE, Urine Methadone Screen NEGATIVE, Acetaminophen Level < 2.0L, Urine Barbiturates Screen NEGATIVE, Urine Phencyclidine Screen NEGATIVE, Urine Amphetamines Screen NEGATIVE, Urine Benzodiazepines Screen NEGATIVE, Urine Cocaine Metabolite Screen NEGATIVE, Urine Cannabinoids Screen NEGATIVE, Ethyl Alcohol Level < 0.003 10/07/21 11:10: Ammonia < 10, Total Creatine Kinase 1720H, Creatine Kinase MB 5.1H, Creatine Kinase MB Relative Index 0.30, Troponin I High Sensitivity 32.0, Coronavirus (COVID-19)(PCR) NEGATIVE, Influenza Type A (RT-PCR) NEGATIVE, Influenza Type B (RT-PCR) NEGATIVE, Respiratory Syncytial Virus (PCR) NEGATIVE 10/07/21 11:12: Blood Gas Bicarbonate Standard 23.2, Arterial Blood pH 7.469H, Arterial Blood Partial Pressure CO2 30.2L, Arterial Blood Partial Pressure O2 54.4L, Arterial Blood Total CO2 22.4L, Arterial Blood HCO3 21.4L, Arterial Blood Base Excess - 1.3, Arterial Blood Oxygen Saturation 88.7L 10/07/21 11:20: POC pH (Misc Panel) 7.431, POC Base Excess (Misc Panel) -2.0, POC Saturated Percent O2 (Misc) 86L, POC pO2 (Misc Panel) 49.0*L, POC pCO2 (Misc Panel) 33.2L, POC HCO3 (Misc Panel) 22.1, POC Total CO2 (Misc Panel) 23.0 10/07/21 12:46: POC Glucose (Misc Panel) 187H, POC Sodium (Misc Panel) 139, POC Potassium (Misc Panel) 4.1, POC Chloride (Misc Panel) 107, POC Total CO2 (Misc Panel) 22.0L, POC Blood Urea Nitrogen (Misc Panel 56H, POC Ionized Calcium (Misc Panel) 5.7H, POC Creatinine (Misc Panel) 3.1H, POC Hematocrit (Misc Panel) 37.0L 10/07/21 12:57: POC Troponin I (Misc) 0.03 10/07/21 13:10: Urine Color (MATT) YELLOW, Urine Appearance (MATT) HAZYH, Urine pH (MATT) 5.0, Urine Specific [place] (MATT) 1.020, Urine Protein 3+H, Bedside Urine Glucose ( UA) NEGATIVE, Bedside Urine Ketones (LAB) NEGATIVE, Bedside Urine Blood POSITIVEH, Bedside Urine Nitrite (LAB) POSITIVEH, Bedside Urine Bilirubin (LAB) NEGATIVE, Bedside Urine Urobilinogen (LAB) NORMAL, Bedside Urine Leukocyte Esterase (L POSITIVEH, Urine Sediment Examination PERFORMED, Urine RBC NONE SEEN, Urine WBC 10-15H, Urine Squamous Epithelial Cells NONE SEEN, Urine Bacteria LARGE AMOUNTH, Urine Hyaline Casts NONE SEEN CBC/BMP Laboratory Tests 10/07/21 11:05 Microbiology Microbiology 10/07/21 Urine Culture, Received Pending 10/07/21 Blood Culture, Received Pending 10/07/21 Blood Culture, Received Pending Home Medications Scheduled Amlodipine Besylate (Amlodipine Besylate) 5 Mg Tab, 5 MG PO DAILY Atorvastatin Calcium (Atorvastatin Calcium) 20 Mg Tab, 20 MG PO QHS Bimatoprost (Lumigan) 0.01% 2.5ML Drops, 1 DROP OU QHS Brimonidine Tartrate (Alphagan P) 0.1% 5ML Drops, 1 DROP OU BID Calcium Carbonate/Vitamin D3 (Oyster Shell 500-Vit D3 200 Tb) 1 Each Tablet, 1 TAB PO BID Docusate Sodium (Docusate Sodium) 100 Mg Cap, 200 MG PO BID Ferrous Gluconate (Ferrous Gluconate) 324 Mg Tab, 324 MG PO DAILY Gabapentin (Gabapentin) 100 Mg Capsule, 100 MG PO QHS Losartan Potassium (Losartan Potassium) 100 Mg Tab, 100 MG PO DAILY Metformin HCl (Metformin HCl) 1,000 Mg Tab, 1,000 MG PO DAILY Montelukast Sodium (Singulair) 10 Mg Tab, 10 MG PO DAILY Nebivolol HCl (Bystolic) 5 Mg Tab, 5 MG PO DAILY Omeprazole (Omeprazole) 20 Mg Capsule.dr, 20 MG PO QAM Rivaroxaban (Xarelto) 20 Mg Tablet, 20 MG PO DAILY Salmeterol/Fluticasone (Advair 500-50 Diskus) 1 Each Blst.w.dev, 1 PUFF INH BID Topiramate (Topiramate) 50 Mg Tab, 50 MG PO BID Vit C/E/Zn/Coppr/Lutein/Zeaxan (Preservision Areds 2 Softgel) 1 Each Capsule, 1 EACH PO BID Scheduled PRN Acetaminophen (Acetaminophen) 325 Mg Tablet, 650 MG PO Q6H PRN for PAIN Ipratropium Joaquin (Ipratropium Joaquin) 30 Ml [place], 2 SPRAY NARES TID PRN for RUNNY NOSE Levalbuterol Hydrochloride (Xopenex Hfa) 45 Mcg/Act Aer, 1 PUFF INH Q6H PRN for SHORTNESS OF BREATH Miscellaneous Medications [PT Comment] Unable to confirm meds with pt or family. Med rec acquired from external med hx Allergies Coded Allergies: Sulfa (Sulfonamide Antibiotics) (Verified Allergy, Intermediate, hives, 8/8/19) ibuprofen (Verified Allergy, Intermediate, hives, 05/21/19) aspirin (Verified Allergy, Mild, rash, 05/21/19) bezafibrate (Verified Allergy, Mild, rash, 05/21/19) hydrocodone (Verified Allergy, Mild, rash, 05/21/19) meloxicam (Verified Allergy, Mild, rash, 05/21/19) propoxyphene (Verified Allergy, Mild, rash, 05/21/19) valdecoxib (Verified Allergy, Mild, rash, 05/21/19) A-FIB/CHADSVASC A-FIB History Current/History of A-Fib/PAF?: No Current PO Anticoag Therapy: No Age/Risk Factor Scoring CHADSVASC: CHADSVASC Response (Comments) Value Age Risk Factor Age >/= 75 years old 2 Gender Risk Factor Female 1 Hx of CHF Yes 1 Hx of HTN Yes 1 Hx of Stroke/TIA/or VTE No 0 Hx of Diabetes Yes 1 Hx of Vascular Disease No 0 Total 6 Treatment Treatment ordered: Rivaroxaban MARIAN TODD MD Oct 07, 2021 13:36
[2021-10-07 20:00] VITALS: BP 129/61
[2021-10-07] MEDS: DOCUSATE SODIUM 100MG CAPSULE PO SCH (20:31)
[2021-10-07] MEDS: ATORVASTATIN 20 MG TAB PO SCH (20:31)
[2021-10-07] MEDS: BRIMONIDINE 0.1% OPHTH SOLN 5 ML OU SCH (20:32)
[2021-10-07] MEDS: TOPIRAMATE (TopAMAX) 25 MG TAB PO SCH (20:32)
[2021-10-07] MEDS: HumaLOG INSULIN (NovoLOG) PER UNIT SC SCH (20:45)
[2021-10-08] VITALS: BP 157/76
[2021-10-08] MEDS: NS 1,000 ML IV SCH ×3 (03:52→17:45)
[2021-10-08 04:00] VITALS: BP 140/80
[2021-10-08 06:47] LABS: HEMOGLOBIN 10.7 g/dl (12.0-15.5); MEAN CORPUSCULAR HEMOGLOBIN 31.8 pg (27.0-33.0); MEAN CORPUSCULAR HGB CONC 32.4 g/dl (32.0-36.5); MEAN CORPUSCULAR VOLUME 98.2 fl (80.0-96.0); PLATELET COUNT, AUTOMATED 133 10^3/uL (150-450); RED BLOOD COUNT 3.36 10^6/uL (4.00-5.40)
[2021-10-08 06:50] LABS: WHITE BLOOD COUNT 33.9 10^3/uL (4.0-10.0)
[2021-10-08 07:10] LABS: HEMOGLOBIN A1c 7.7 %
[2021-10-08 07:14] LABS: CALCIUM LEVEL 9.8 MG/DL (8.8-10.2); CREATININE FOR GFR 2.56 MG/DL (0.55-1.30); GLOMERULAR FILTRATION RATE 19.3 (>39); POTASSIUM SERUM 3.7 MEQ/L (3.5-5.1)
[2021-10-08 07:27] LABS: CK-MB VALUE MASS 5.5 NG/ML (<3.6); MB/CK RELATIVE INDEX 0.28 (< OR =4)
[2021-10-08 08:00] VITALS: BP 189/88
[2021-10-08 08:09] LABS: LYMPHOCYTES 1 % (16-44); MONOCYTES 3 % (0-5); NEUTROPHILS 91 % (28-66)
[2021-10-08 08:10] LABS: PLATELET CLUMPS SMALL AMT; PLATELET ESTIMATE DECREASED (NORMAL)
[2021-10-08 08:11] LABS: BURR CELLS 1+; POLYCHROMASIA 1+; SCHISTOCYTES 1+
[2021-10-08] MEDS: PIPERACILLIN/TAZOBACTAM SOD 2.25 GM in D5W MINI-BAG PLUS 50 ML IV SCH ×3 (08:24→20:25)
[2021-10-08] MEDS: MONTELUKAST 10 MG TAB PO SCH (08:25)
[2021-10-08] MEDS: DOCUSATE SODIUM 100MG CAPSULE PO SCH ×2 (08:25→20:25)
[2021-10-08] MEDS: HumaLOG INSULIN (NovoLOG) PER UNIT SC SCH ×4 (08:25→20:26)
[2021-10-08] MEDS: OMEPRAZOLE 20 MG CAP PO SCH (08:26)
[2021-10-08] MEDS: RIVAROXABAN 15 MG TAB (XARELTO) PO SCH (08:26)
[2021-10-08] MEDS: TOPIRAMATE (TopAMAX) 25 MG TAB PO SCH ×2 (08:26→20:25)
[2021-10-08] MEDS: LACTOBACILLUS ACIDOPHILUS CAP (BACID) PO SCH ×4 (08:26→20:25)
[2021-10-08] MEDS: NEBIVOLOL 5 MG TAB (BYSTOLIC) PO SCH (08:26)
[2021-10-08] MEDS: FERROUS GLUCONATE 324 MG TAB PO SCH (08:26)
[2021-10-08] MEDS: amLODIPine 5 MG TAB PO SCH (08:27)
[2021-10-08] MEDS: BRIMONIDINE 0.1% OPHTH SOLN 5 ML OU SCH ×2 (08:27→20:27)
--- NOTE | 2021-10-08 08:59 | IPN ---
PROGRESS NOTE DATE: 10/08/2021 SUBJECTIVE: Patient is more oriented, appropriate this morning, able to provide a review of systems. She denies any fever, chills. She is very thirsty with chapped lips. She has no nausea or vomiting. Patient has some dysuria, no flank pain, denies any shortness of breath, chest pain, pressure, tightness or palpitations. PHYSICAL EXAM: Vitals: Temperature 97.8, pulse 89, respiratory rate 17, blood pressure 140/80, 92%, two liters nasal cannula. General: The patient is awake, alert and oriented to herself, answering questions appropriately this morning. Face is symmetric. Tongue is midline. Dry, chapped lips. Edentulous. No JVD, thyromegaly. Lungs: Diminished. Heart: S1, S2, sinus rhythm. Abdomen: Soft, nontender, nondistended. Joel catheter in place. No rebound or guarding. Extremities: No cyanosis or clubbing. Laboratory data, imaging study, microbiology: Please see the chart. ASSESSMENT AND PLAN: This is a 76-year-old female who lives alone, cared for by her daughter and granddaughter with history of PE, March, on chronic Xarelto, COPD, CVA, CAD, CKD stage 3 with baseline creatinine of 1.26, brought in by ambulance after family found her on the ground when the neighbors heard her moaning at around 5 a.m. yesterday morning. Patient had fallen down, could not get up, was found to have the following acute issues: 1. Sepsis secondary to acute right-sided pyelonephritis with an obstructive uropathy and a 4 mm stone at the ureterovesical junction. Patient was given vancomycin and Zosyn from the emergency room. She was given intravenous fluids. Lactic acid has improved. Urine culture is pending. Blood culture has gram negative rods. Patient has been afebrile overnight. Mentation has improved. Continue with supportive care for now. Patient did receive one dose of Solu-Medrol yesterday with possible steroid-induced leukocytosis this morning. 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 With IV fluid hydration yesterday at 1.9 liters, the patient did well with decrease in creatinine to 2.56. After the patient had fallen, she did have acute rhabdomyolysis with total CK elevated at 1720 and still elevated at 1954 this morning. Patient is currently on two liters nasal cannula, saturating 92% due to severe hypoxia with oxygen saturation of 76% yesterday. Therefore, patient's IV fluids have not been increased and remains at 100 mL per hour. 2. Acute rhabdomyolysis, [id number] renal failure secondary to obstructive uropathy with 4 mm stone in the ureterovesical junction as well as acute rhabdomyolysis from recent fall. Patient has been hydrated. According to urologist, the stone is very small and does not require cystoscopy with stent placement or stone extraction. She is being provided support care for sepsis which is also a cause of acute kidney injury with vancomycin and Zosyn renally dosed by pharmacy. We are avoiding any nephrotoxins and renally dosing all her medications. Urologist also requested Flomax to be started. 3. History of congestive heart failure, diastolic dysfunction with preserved ejection fraction, not volume overloaded at this time but we will continue to monitor. 4. History of CAD, SC in the past. No acute ischemic complaints. 5. Hypertension. Ranges from 129 to 157 systolic. We will continue to monitor for now and resume on home medications, Bystolic, Norvasc. 6. COPD. As needed bronchodilators. 7. Type 2 diabetes. Patient had decreased appetite yesterday. She is on hypoglycemic protocol and insulin sliding scale q.a.c., h.s. and left on puree diet due to prior history of foreign body ingestion requiring EGD and history of hiatal hernia surgery multiple times with Henri fundoplication. 8. History of pulmonary embolism. Resume back on Xarelto. No plans to go to the OR for cystoscopy, stone extraction or stent placement. 9. Chronic iron deficiency anemia/anemia of chronic disease. Resume back on her home dose of ferrous gluconate. 10. History of CVA with no residual. She is continued on Lipitor and on chronic Topamax 50 b.i.d. 11. Fall secondary to debility and weakness due to worsening renal failure, sepsis with acute pyelonephritis, obstructive uropathy. Will need ARU. Patient was living alone prior to this admission. 12. History of MRSA in the left axillary with abscess, status post incision and drainage. MRSA screen was not detected. DISPOSITION: Patient is medically stable for transfer to medical-surgical floor.
[2021-10-08] MEDS ORDERED: VANCOMYCIN HCL 1,000 MG, VIAL MATE ADAPTER 1 EACH in NS 250 ML IV SCH (09:00)
[2021-10-08] MEDS: TAMSULOSIN 0.4 MG CAP PO SCH (09:28)
[2021-10-08 12:00] VITALS: BP 142/69
[2021-10-08 16:00] VITALS: BP 189/86
[2021-10-08 20:00] VITALS: BP 164/78
[2021-10-08] MEDS: ATORVASTATIN 20 MG TAB PO SCH (20:25)
[2021-10-09] VITALS: BP 156/73
[2021-10-09] MEDS: PIPERACILLIN/TAZOBACTAM SOD 2.25 GM in D5W MINI-BAG PLUS 50 ML IV SCH ×4 (02:42→20:50)
[2021-10-09 04:00] VITALS: BP 160/74
[2021-10-09 05:33] LABS: BASO # 0.1 10^3/uL (0.0-0.2); BASO % 0.2 % (0.0-1.0); EOS # 0.1 10^3/uL (0.0-0.5); EOS % 0.6 % (0.0-3.0); HEMATOCRIT 31.3 % (36.0-47.0); LYMPH # 0.6 10^3/uL (1.5-5.0); LYMPH % 2.6 % (24.0-44.0); MEAN CORPUSCULAR HEMOGLOBIN 31.3 pg (27.0-33.0); MEAN CORPUSCULAR HGB CONC 31.9 g/dl (32.0-36.5); MEAN CORPUSCULAR VOLUME 97.8 fl (80.0-96.0); MONO % 4.3 % (2.0-8.0); NEUTROPHILS # 20.9 10^3/uL (1.5-8.5); NEUTROPHILS % 90.9 % (36.0-66.0); PLATELET COUNT, AUTOMATED 108 10^3/uL (150-450)
[2021-10-09 05:58] LABS: CK-MB VALUE MASS 2.9 NG/ML (<3.6); MB/CK RELATIVE INDEX 0.5 (< OR =4)
[2021-10-09 06:03] LABS: CALCIUM LEVEL 8.5 MG/DL (8.8-10.2); CREATININE FOR GFR 2.28 MG/DL (0.55-1.30); GLOMERULAR FILTRATION RATE 22.1 (>39); POTASSIUM SERUM 3.4 MEQ/L (3.5-5.1)
[2021-10-09] MEDS: HumaLOG INSULIN (NovoLOG) PER UNIT SC SCH ×4 (08:31→20:51)
[2021-10-09] MEDS: LACTOBACILLUS ACIDOPHILUS CAP (BACID) PO SCH ×4 (08:32→20:51)
[2021-10-09] MEDS: TAMSULOSIN 0.4 MG CAP PO SCH (08:32)
[2021-10-09] MEDS: DOCUSATE SODIUM 100MG CAPSULE PO SCH ×2 (08:32→20:51)
[2021-10-09] MEDS: MONTELUKAST 10 MG TAB PO SCH (08:32)
[2021-10-09] MEDS: TOPIRAMATE (TopAMAX) 25 MG TAB PO SCH ×2 (08:32→20:50)
[2021-10-09] MEDS: OMEPRAZOLE 20 MG CAP PO SCH (08:32)
[2021-10-09] MEDS: RIVAROXABAN 15 MG TAB (XARELTO) PO SCH (08:33)
[2021-10-09] MEDS: FERROUS GLUCONATE 324 MG TAB PO SCH (08:33)
[2021-10-09] MEDS: amLODIPine 5 MG TAB PO SCH (08:33)
[2021-10-09] MEDS: NEBIVOLOL 5 MG TAB (BYSTOLIC) PO SCH (08:33)
[2021-10-09] MEDS: BRIMONIDINE 0.1% OPHTH SOLN 5 ML OU SCH ×2 (08:34→20:52)
[2021-10-09] MEDS ORDERED: POTASSIUM CHLORIDE 10MEQ SR TABLET PO ONE ×2 (09:00→12:25)
--- NOTE | 2021-10-09 11:29 | REP ---
INDICATION: SOB COMPARISON: 10/07/2021 TECHNIQUE: PA and lateral. FINDINGS: Mediastinum and cardiac silhouette are stable. Small bilateral pleural effusions, bibasilar atelectasis, and left lower lobe consolidation appear increased from 10/07/2021 examination. No pneumothorax. Skeletal structures intact. IMPRESSION: Small bilateral pleural effusions with bibasilar atelectasis and left lower lobe consolidation appears increased from prior examination. <Electronically signed by Dominick Gauthier > 10/09/21 [id number]
[2021-10-09 12:00] VITALS: BP 154/70
[2021-10-09] MEDS ORDERED: SENOKOT S TAB PO ONE (12:25)
[2021-10-09] MEDS: SODIUM BICARBONATE 100 MEQ in D5W 1,000 ML IV SCH (12:35)
[2021-10-09] MEDS: DOXYCYCLINE HYCLATE 100 MG in D5W MINI-BAG PLUS 100 ML IV SCH (12:49)
--- NOTE | 2021-10-09 13:41 | IPN ---
PROGRESS NOTE DATE: 10/09/2021 SUBJECTIVE: Patient denies any fever or chills. She denies any flank pain, dysuria, urgency, frequency or gross hematuria. Patient is alert, awake, oriented to self. She has no nausea or vomiting, chest pain, pressure or tightness. She denies any shortness of breath. OBJECTIVE: Vital signs: Temperature 97.1, pulse 91, respiratory rate 20, blood pressure 164/75, 94% on 2 liters nasal cannula. General: Awake, alert, oriented to self only, answers questions appropriately. She had mild use of respiratory accessory muscles, but no tripod positioning. Head of bed elevation is at 45 degrees. HEENT: Her lips are moist. Edentulous. Neck: No JVD or thyromegaly. Lungs: Diminished breath sounds, bilateral crackles. Heart: S1 and S2 sinus rhythm. Abdomen: Soft, nontender, nondistended, no guarding or rebound. No CVA tenderness. Extremities: No cyanosis or clubbing. LABORATORY DATA/IMAGING STUDIES/MICROBIOLOGY: Please see the chart. ASSESSMENT: 76-year-old female who lives alone cared for by her daughter and granddaughter with history of PE in March, on chronic Xarelto, COPD, CVA, CAD, CKD stage 3, baseline creatinine of 1.26 brought in by ambulance after family found her on the ground when the neighbors heard moaning. Around 5:00 a.m. the day before presentation patient fell down and could not get up and was found to have the following acute issues: 1. Acute right sided pyelonephritis with obstructive uropathy and a 4 mm stone at the ureterovesical junction with white count elevation: Started on vanco and Zosyn initially with improvement in the white blood cell count, deescalated, awaiting urine culture results. Blood cultures have been reviewed. 2. Acute rhabdomyolysis secondary to the fall: On I.V. fluids. Monitor for respiratory distress. 3. Acute on chronic renal failure secondary to rhabdomyolysis and obstructive uropathy due to a 4 mm stone in the ureterovesical junction: Responding well to I.V. fluids. Monitor for hypoxia. 4. Congestive heart failure, diastolic dysfunction: With preserved ejection fraction. Monitor for volume overload. Recheck a chest x-ray today. Patient has received a significant amount of I.V. fluid for rabdo and sepsis. 5. Four mm ureterovesical junction causing obstructive uropathy: Per urologist on-call on admission patient does not require cystoscopy with stent placement or lithotripsy as this was almost on its way out. Continue with I.V. fluids, antibiotics. Renal function is improving. 6. History of CVA/KS: No acute ischemic symptoms. 7. Hypertension: Stable. Resumed on Bystolic and Norvasc. 8. COPD: On bronchodilators. 9. Type-2 diabetes: On sliding scale. Patient's long acting insulin has been held due to poor oral intake. 10. Dysphagia, rule out aspiration: Swallow eval today. 11. Recent pulmonary embolism in March,: On Xarelto. 12. Iron deficiency anemia, anemia of chronic disease: On ferrous gluconate. 13. History of CVA: With no residual. Continued on Lipitor. On chronic Xarelto for PE. 14. Fall with debility and weakness due to renal failure, sepsis with acute pyelonephritis and obstructive uropathy: ARU consulted. 15. History of MRSA in the past: MRSA screen at this time is negative. MTDD
[2021-10-09 14:48] LABS: MAGNESIUM LEVEL 1.6 MG/DL (1.8-2.4); POTASSIUM SERUM 3.8 MEQ/L (3.5-5.1)
[2021-10-09 16:01] VITALS: BP 140/70
[2021-10-09] MEDS ORDERED: MAG SULF 1GM/100ML (MAG RUN) 1 GM in IV 1 EA IV ONE (17:20)
[2021-10-09 18:13] LABS: CALCIUM LEVEL 8.4 MG/DL (8.8-10.2); CREATININE FOR GFR 2.15 MG/DL (0.55-1.30); GLOMERULAR FILTRATION RATE 23.7 (>39)
[2021-10-09 20:00] VITALS: BP 151/74
[2021-10-09 20:42] LABS: POTASSIUM SERUM 3.4 MEQ/L (3.5-5.1)
[2021-10-09] MEDS: ATORVASTATIN 20 MG TAB PO SCH (20:51)
--- NOTE | 2021-10-09 20:59 | ECGEPIP ---
[facility] Test Date: 2021-10-09 Pat Name: CHAPARRO FULTON Department: Room: [place] [address] Gender: Female [employer]: ROSMERY : 1945 Requested By: MARIAN Bullock Order Number: [id number] Reading MD: Tacho Freeman Measurements Intervals [place] Rate: 72 P: 18 NV: 210 QRS: -39 QRSD: 94 T: -41 QT: 414 QTc: 453 Interpretive Statements Sinus rhythm with 1st degree AV block Left axis deviation Delayed anterior R wave progression Nonspecific T wave abnormality Compared to prior tracing of 10/07/2021, heart rate is slower Electronically Signed on 10-09-2021 20:58:49 EST by Tacho Freeman
[2021-10-09] MEDS ORDERED: SIMVASTATIN 20 MG TAB PO SCH (21:00)
[2021-10-10] MEDS: DOXYCYCLINE HYCLATE 100 MG in D5W MINI-BAG PLUS 100 ML IV SCH (01:35)
[2021-10-10] MEDS: PIPERACILLIN/TAZOBACTAM SOD 2.25 GM in D5W MINI-BAG PLUS 50 ML IV SCH (02:34)
[2021-10-10 02:50] LABS: MAGNESIUM LEVEL 1.8 MG/DL (1.8-2.4); POTASSIUM SERUM 3.5 MEQ/L (3.5-5.1)
[2021-10-10] MEDS: SODIUM BICARBONATE 100 MEQ in D5W 1,000 ML IV SCH (04:24)
[2021-10-10 06:00] VITALS: BP 169/91
[2021-10-10 06:11] LABS: BASO # 0.1 10^3/uL (0.0-0.2); BASO % 0.4 % (0.0-1.0); EOS # 0.6 10^3/uL (0.0-0.5); EOS % 3.8 % (0.0-3.0); HEMATOCRIT 29.7 % (36.0-47.0); HEMOGLOBIN 9.7 g/dl (12.0-15.5); LYMPH # 0.8 10^3/uL (1.5-5.0); MEAN CORPUSCULAR HGB CONC 32.7 g/dl (32.0-36.5); MEAN CORPUSCULAR VOLUME 94.9 fl (80.0-96.0); MONO % 6.5 % (2.0-8.0); NEUTROPHILS # 12.4 10^3/uL (1.5-8.5); PLATELET COUNT, AUTOMATED 117 10^3/uL (150-450); RED BLOOD COUNT 3.13 10^6/uL (4.00-5.40); WHITE BLOOD COUNT 15.5 10^3/uL (4.0-10.0)
[2021-10-10 06:34] LABS: CALCIUM LEVEL 8.1 MG/DL (8.8-10.2); CK-MB VALUE MASS < 1.0 NG/ML (<3.6); CPK CREATINE PHOSPHOKINASE 241 U/L (26-192); CREATININE FOR GFR 1.98 MG/DL (0.55-1.30); MB/CK RELATIVE INDEX 0.41 (< OR =4); POTASSIUM SERUM 3.2 MEQ/L (3.5-5.1)
--- NOTE | 2021-10-10 08:41 | REP ---
INDICATION: Evaluate for hydronephrosis COMPARISON: 03/27/2021 TECHNIQUE: Real time garduno scale ultrasound examination using curved array transducer. FINDINGS: Right kidney measures 10.0 x 5.7 x 5.1 cm and includes 2.0 x 2.0 x 1.8 cm complex upper pole hypoechoic lesion. There is no hydronephrosis, nephrolithiasis, or perinephric stranding. Left kidney measures 9.5 x 4.8 x 5.0 cm and includes 1.3 x 1.0 x 1.4 cm complex lower pole hypoechoic lesion with punctate mural calcification. There is no hydronephrosis, obvious nephrolithiasis or perinephric stranding. IMPRESSION: No hydronephrosis. Bilateral solitary anechoic structures likely representing complex cysts. Consider pre and postcontrast CT of the abdomen for confirmation. <Electronically signed by Dominick Gauthier > 10/10/21 [id number]
[2021-10-10] MEDS ORDERED: POTASSIUM CHLORIDE 10MEQ SR TABLET PO ONE (09:00)
[2021-10-10] MEDS ORDERED: CEFDINIR 300 MG CAP (OMNICEF) PO SCH (09:00)
[2021-10-10] MEDS: CEFDINIR 300 MG CAP (OMNICEF) PO SCH (09:50)
[2021-10-10] MEDS: HumaLOG INSULIN (NovoLOG) PER UNIT SC SCH ×4 (09:50→21:00)
[2021-10-10] MEDS: DOXYCYCLINE HYCLATE 100MG TABLET PO SCH ×2 (09:50→21:29)
[2021-10-10] MEDS: DOCUSATE SODIUM 100MG CAPSULE PO SCH ×2 (09:50→21:28)
[2021-10-10] MEDS: TAMSULOSIN 0.4 MG CAP PO SCH (09:50)
[2021-10-10] MEDS: OMEPRAZOLE 20 MG CAP PO SCH (09:50)
[2021-10-10] MEDS: LACTOBACILLUS ACIDOPHILUS CAP (BACID) PO SCH ×4 (09:51→21:29)
[2021-10-10] MEDS: RIVAROXABAN 15 MG TAB (XARELTO) PO SCH (09:51)
[2021-10-10] MEDS: MONTELUKAST 10 MG TAB PO SCH (09:51)
[2021-10-10] MEDS: FERROUS GLUCONATE 324 MG TAB PO SCH (09:51)
[2021-10-10] MEDS: TOPIRAMATE (TopAMAX) 25 MG TAB PO SCH ×2 (09:52→21:28)
[2021-10-10] MEDS: amLODIPine 5 MG TAB PO SCH (09:53)
[2021-10-10] MEDS: BRIMONIDINE 0.1% OPHTH SOLN 5 ML OU SCH ×2 (09:54→21:32)
[2021-10-10] MEDS: NEBIVOLOL 5 MG TAB (BYSTOLIC) PO SCH (10:21)
[2021-10-10] MEDS ORDERED: GLYB125TA PO (12:47)
[2021-10-10] MEDS ORDERED: FLOM0.4C39 PO (12:47)
[2021-10-10] MEDS ORDERED: RISATAB3 PO (12:47)
[2021-10-10] MEDS ORDERED: CEFD300CAP PO (12:47)
[2021-10-10] MEDS ORDERED: DOXY100T PO (12:47)
[2021-10-10 14:00] VITALS: BP 152/66
[2021-10-10 14:03] LABS: CALCIUM LEVEL 8.1 MG/DL (8.8-10.2); CREATININE FOR GFR 2.01 MG/DL (0.55-1.30); GLOMERULAR FILTRATION RATE 25.6 (>39); POTASSIUM SERUM 3.3 MEQ/L (3.5-5.1)
--- NOTE | 2021-10-10 16:07 | IPNPDOC ---
Text Note Date of Service The patient was seen on 10/10/21. NOTE Subjective: Patient is a 76 year old female with a PMHx of HTN, Diastolic CHF, CAD (Hx of MD), DLP, Hx of CVA, Hx of PE, COPD / Asthma, DM2, CKD3, GERD who presented to the ER on 10/07 after she had fallen and was unable to get up in the emergency room, patient was found to have a severe urinary tract infection/pyelonephritis and she was admitted to the hospitalist service for further evaluation and treatment. Patient was seen and examined at the bedside. Currently patient denies any nausea, vomiting, chest pain, shortness breath, palpitations or cough. Denies any abdominal pain consultation, diarrhea. Patient has had a Joel catheter this morning, which will be removed for a voiding trial later today. Objective: Vitals (See below) General: Lying in bed, no acute distress, comfortable, AAOx3 HEENT: NC, AT CVS: RRR, +S1S2 Lungs: Fair air entry b/l, -w/r/r Abdomen: Soft, ND, NT Extremities: No evidence of edema, - Calf tenderness Imaging: CT cervical spine 10/07: Moderate to advanced multilevel degenerative spondylosis. No evidence for acute pathology or trauma/injury. CXR 10/07: Bibasilar airspace disease with small right pleural effusion. Femur XR 10/07: Limited examination without evidence for acute fracture to the visualized osseous structures. CT head 10/07: Atrophy and chronic microvascular ischemic changes. No acute intracranial hemorrhage, infarction, or mass/mass effect. XR knee 10/07: Moderate tricompartmental osteoarthritic degenerative changes. No obvious acute fracture or dislocation. XR Pelvis 10/07: Degenerative changes. No acute fracture or dislocation. XR Tib/Fib 10/07: No acute fracture or dislocation. XR hip 10/07: Degenerative changes. No acute fracture or dislocation. CT abdomen / pelvis 10/07: 1. Acute right-sided obstructive uropathy with a 4 mm obstructing calculus at the ureterovesical junction. 2. Moderate bibasilar atelectasis and small right pleural effusion. 3. Nonacute findings as described above. CXR 10/09: Small bilateral pleural effusions with bibasilar atelectasis and left lower lobe consolidation appears increased from prior examination. Renal US 10/10: No hydronephrosis. Bilateral solitary anechoic structures likely representing complex cysts. Consider pre and postcontrast CT of the abdomen for confirmation. Assessment and plan: Acute R sided pyelonephritis w/ obstructive uropathy - Currently patient reports improvement of her pain - Imaging noted above - c/w Cefdinir; s/p Zosyn (Antibiotic day #4) - c/w Fluid hydration Bacteremia - likely 2/2 Klebsiella - likely 2/2 UTI - c/w Antibiotics (See above) s/p Acute rhabdomyolysis - c/w IV fluid hydration LAURI on CKD3 - Baseline Cr of 1.2 - c/w IV fluid hdyration Chronic Diastolic CHF - Currently does not have any signs of fluid overload - Not on any diuretic therapy as an outpatient 4mm Ureterovesical junction stone - Initial hospitalist had discussed with urology; recommended no cystoscopy and instructed to continue with IV fluid hydration - c/w Tamsulosin - Will have Joel removed for voiding trial today Hx of CVA / Hx of CAD (Hx of MD) - Denies any chest pain, shortness breath or palpitations - c/w Atorvastatin HTN - BP well controlled - c/w Amlodipine / Nebivolol DM2 - c/w ISS Dysphagia - Speech therapy on consultation; we'll make adjustments to diet based on recommendations Hx of PE (03/2021) - c/w Xarelto Iron deficiency anemia - c/w Ferrous gluconate Fall / Debility - c/w PT and OT; patient is been cleared for discharge home with services GI prophylaxis - c/w Omeprazole DVT prophylaxis - c/w full anticoagulation with Xarelto Disposition: - Pending clinical improvement Olive KAMARA I+O Olive KAMARA I+O Laboratory Tests 10/09/21 20:05 10/10/21 02:06 10/10/21 05:48 10/10/21 13:04 Vital Signs Date Time Temp Pulse Resp B/P (MAP) Pulse Ox O2 Delivery O2 Flow Rate FiO2 10/10/21 14:00 98.2 68 24 152/66 (94) 94 Room Air 10/09/21 16:01 I&O- Last 24 Hours up to 6 AM 10/10/21 06:00 Intake Total 1660 ml Output Total 725 ml Balance 935 ml CHATA HILL MD Oct 10, 2021 16:07
[2021-10-10] MEDS: LR 1,000 ML IV SCH (16:35)
[2021-10-10] MEDS: ATORVASTATIN 20 MG TAB PO SCH (21:29)
[2021-10-10 21:44] LABS: CALCIUM LEVEL 8.1 MG/DL (8.8-10.2); CREATININE FOR GFR 1.82 MG/DL (0.55-1.30); GLOMERULAR FILTRATION RATE 28.7 (>39); POTASSIUM SERUM 3.4 MEQ/L (3.5-5.1)
[2021-10-10 22:00] VITALS: BP 164/74
[2021-10-11] MEDS: LR 1,000 ML IV SCH (04:19)
[2021-10-11 06:00] VITALS: BP 122/92
[2021-10-11] MEDS ORDERED: LevoFLOXacin 750 MG TABLET PO SCH (06:00)
[2021-10-11 07:04] LABS: HEMATOCRIT 26.8 % (36.0-47.0); HEMOGLOBIN 8.8 g/dl (12.0-15.5); MEAN CORPUSCULAR HEMOGLOBIN 31.4 pg (27.0-33.0); MEAN CORPUSCULAR HGB CONC 32.8 g/dl (32.0-36.5); MEAN CORPUSCULAR VOLUME 95.7 fl (80.0-96.0)
[2021-10-11 07:25] LABS: CALCIUM LEVEL 7.8 MG/DL (8.8-10.2); CREATININE FOR GFR 1.36 MG/DL (0.55-1.30); GLOMERULAR FILTRATION RATE 40.1 (>39); POTASSIUM SERUM 3.7 MEQ/L (3.5-5.1)
[2021-10-11 08:14] LABS: ATYPICAL LYMPH 1 % (0-5); EOSINOPHILS 3 % (0-3); LYMPHOCYTES 9 % (16-44); MONOCYTES 3 % (0-5); NEUTROPHILS 82 % (28-66)
[2021-10-11 08:15] LABS: ANISOCYTOSIS 1+; PLATELET CLUMPS SMALL AMT; PLATELET ESTIMATE INVALID (NORMAL)
[2021-10-11 08:54] VITALS: BP 142/92
[2021-10-11] MEDS: FERROUS GLUCONATE 324 MG TAB PO SCH (08:56)
[2021-10-11] MEDS: OMEPRAZOLE 20 MG CAP PO SCH (08:56)
[2021-10-11] MEDS: TOPIRAMATE (TopAMAX) 25 MG TAB PO SCH ×2 (08:56→20:25)
[2021-10-11] MEDS: TAMSULOSIN 0.4 MG CAP PO SCH (08:56)
[2021-10-11] MEDS: LACTOBACILLUS ACIDOPHILUS CAP (BACID) PO SCH ×4 (08:56→20:25)
[2021-10-11] MEDS: amLODIPine 5 MG TAB PO SCH (08:57)
[2021-10-11] MEDS: NEBIVOLOL 5 MG TAB (BYSTOLIC) PO SCH (08:57)
[2021-10-11] MEDS: DOCUSATE SODIUM 100MG CAPSULE PO SCH (08:57)
[2021-10-11] MEDS: CEFDINIR 300 MG CAP (OMNICEF) PO SCH (08:57)
[2021-10-11] MEDS: DOXYCYCLINE HYCLATE 100MG TABLET PO SCH (08:57)
[2021-10-11] MEDS: RIVAROXABAN 15 MG TAB (XARELTO) PO SCH (08:57)
[2021-10-11] MEDS: MONTELUKAST 10 MG TAB PO SCH (08:57)
[2021-10-11] MEDS: HumaLOG INSULIN (NovoLOG) PER UNIT SC SCH ×4 (08:58→20:25)
[2021-10-11] MEDS: BRIMONIDINE 0.1% OPHTH SOLN 5 ML OU SCH ×2 (08:59→20:26)
[2021-10-11 10:23] LABS: HEMATOCRIT 30.2 % (36.0-47.0); MEAN CORPUSCULAR HEMOGLOBIN 31.5 pg (27.0-33.0); MEAN CORPUSCULAR HGB CONC 33.1 g/dl (32.0-36.5); MEAN CORPUSCULAR VOLUME 95.3 fl (80.0-96.0); PLATELET COUNT, AUTOMATED 149 10^3/uL (150-450); RED BLOOD COUNT 3.17 10^6/uL (4.00-5.40); WHITE BLOOD COUNT 18.4 10^3/uL (4.0-10.0)
[2021-10-11 10:47] LABS: C REACTIVE PROTEIN QUANTITATIV 8.3 MG/DL (0.00-0.30); CREATININE FOR GFR 1.59 MG/DL (0.55-1.30); GLOMERULAR FILTRATION RATE 33.5 (>39); POTASSIUM SERUM 3.2 MEQ/L (3.5-5.1)
[2021-10-11] MEDS ORDERED: GLIP-163 PO (11:02)
[2021-10-11] MEDS ORDERED: POTASSIUM CHLORIDE 10MEQ SR TABLET PO ONE (11:10)
--- NOTE | 2021-10-11 11:12 | IPNPDOC ---
Text Note Date of Service The patient was seen on 10/11/21. NOTE Subjective: Patient is a 76 year old female with a PMHx of HTN, Diastolic CHF, CAD (Hx of ME), DLP, Hx of CVA, Hx of PE, COPD / Asthma, DM2, CKD3, GERD who presented to the ER on 10/07 after she had fallen and was unable to get up in the emergency room, patient was found to have a severe urinary tract infection/pyelonephritis and she was admitted to the hospitalist service for further evaluation and treatment. Patient was seen and examined at the bedside. Currently, patient was seen ambulating around the room with a walker. Patient denies any chest pain, shortness of breath or palpitations. She is not experiencing any nausea, vomiting, abdominal pain. Patient reports that she has not had any more diarrhea. However, she has had several bowel movements yesterday. Objective: Vitals (See below) General: Ambulating around the room without any difficulty, appears comfortable, awake, alert, oriented 3 HEENT: Atraumatic and normocephalic CVS: RRR, +S1S2 Lungs: Fair air entry b/l, no evidence of wheezing, rales or rhonchi Abdomen: Soft, nondistended and nontender Extremities: Lower extremities do not reveal any significant edema Imaging: CT cervical spine 10/07: Moderate to advanced multilevel degenerative spondylosis. No evidence for acute pathology or trauma/injury. CXR 10/07: Bibasilar airspace disease with small right pleural effusion. Femur XR 10/07: Limited examination without evidence for acute fracture to the visualized osseous structures. CT head 10/07: Atrophy and chronic microvascular ischemic changes. No acute intracranial hemorrhage, infarction, or mass/mass effect. XR knee 10/07: Moderate tricompartmental osteoarthritic degenerative changes. No obvious acute fracture or dislocation. XR Pelvis 10/07: Degenerative changes. No acute fracture or dislocation. XR Tib/Fib 10/07: No acute fracture or dislocation. XR hip 10/07: Degenerative changes. No acute fracture or dislocation. CT abdomen / pelvis 10/07: 1. Acute right-sided obstructive uropathy with a 4 mm obstructing calculus at the ureterovesical junction. 2. Moderate bibasilar atelectasis and small right pleural effusion. 3. Nonacute findings as described above. CXR 10/09: Small bilateral pleural effusions with bibasilar atelectasis and left lower lobe consolidation appears increased from prior examination. Renal US 10/10: No hydronephrosis. Bilateral solitary anechoic structures likely representing complex cysts. Consider pre and postcontrast CT of the abdomen for confirmation. Assessment and plan: Acute R sided pyelonephritis w/ obstructive uropathy - Patient denies any significant abdominal pain or discomfort - Patient remains afebrile and hemodynamically stable - Leukocytosis has worsened this morning; will adjust antibiotics - Imaging noted above - Will start Levofloxain; Will DC Cefdinir; s/p Zosyn (Antibiotic day #5) - c/w Fluid hydration; will adjust Bacteremia - likely 2/2 Klebsiella - likely 2/2 UTI - c/w Antibiotics (See above) Leukocytosis - likely 2/2 bacteremia, R sided pyelonephritis, possibly 2/2 CAP? - Patient denies any significant cough - Saturating well on room air - c/w Antibiotics (See above) s/p Acute rhabdomyolysis - c/w IV fluid hydration LAURI on CKD3 - Baseline Cr of 1.2 - Creatinine continues to improve, however, has not yet reached baseline - c/w IV fluid hydration; will adjust NAG Metabolic acidosis - possibly 2/2 diarrhea - Patient reports diarrhea has been subsiding - Will check urine AG - Will adjust fluids - Will follow BMP trend Chronic Diastolic CHF - Currently does not have any signs of fluid overload - Not on any diuretic therapy as an outpatient 4mm Ureterovesical junction stone - Initial hospitalist had discussed with urology; recommended no cystoscopy and instructed to continue with IV fluid hydration - c/w Tamsulosin - Will have Joel removed for voiding trial today Hx of CVA / Hx of CAD (Hx of ME) - Denies any chest pain, shortness breath or palpitations - c/w Atorvastatin HTN - BP well controlled - c/w Amlodipine / Nebivolol DM2 - c/w ISS Dysphagia - Speech therapy on consultation; we'll make adjustments to diet based on recommendations Hx of PE (03/2021) - c/w Xarelto Iron deficiency anemia - c/w Ferrous gluconate Fall / Debility - c/w PT and OT; patient is been cleared for discharge home with services GI prophylaxis - c/w Omeprazole DVT prophylaxis - c/w full anticoagulation with Xarelto Disposition: - Pending clinical improvement - Called and updated daughter, Cris Liriano about plan of care: [phone] - Anticipate DC in 24 hours VS,Fishbone, I+O VS, Fishbone, I+O Laboratory Tests 10/10/21 13:04 10/10/21 21:11 10/11/21 06:49 10/11/21 10:03 Vital Signs Date Time Temp Pulse Resp B/P (MAP) Pulse Ox O2 Delivery O2 Flow Rate FiO2 10/11/21 08:57 65 142/92 10/11/21 08:54 98.3 10/11/21 06:00 18 94 Room Air 10/09/21 16:01 I&O- Last 24 Hours up to 6 AM 10/11/21 06:00 Intake Total 1038 ml Output Total 1380 ml Balance -342 ml CHATA HILL MD Oct 11, 2021 11:12
[2021-10-11 11:28] LABS: EOSINOPHILS 3 % (0-3); LYMPHOCYTES 12 % (16-44); METAMYELOCYTES 1 % (0-0); MONOCYTES 1 % (0-5); NEUTROPHILS 80 % (28-66)
[2021-10-11 11:29] LABS: ANISOCYTOSIS 1+; PLATELET ESTIMATE DECREASED (NORMAL)
[2021-10-11 12:50] LABS: CREATININE,RANDOM URINE 41.3 MG/DL; POTASSIUM RANDOM URINE 13.5 MEQ/L
[2021-10-11 14:00] VITALS: BP 152/75
[2021-10-11] MEDS: SODIUM BICARBONATE 50 MEQ in D5W/0.45% SODIUM CHLORIDE 1,000 ML IV SCH (14:34)
[2021-10-11] MEDS ORDERED: GI COCKTAIL 50ML BTL(HYOSCYAMINE/MAALOX/LIDOCAINE VISCOUS)(1:3:1) PO ONE (14:35)
[2021-10-11 16:10] LABS: BODY FLUID CULTURE Not indicated. (.); LEGIONELLA ANTIGEN URINE Negative (Negative); ORGANISM ID Not indicated. (.); SPECIMEN SOURCE Urine (.); URINE STREP PNEUMONIAE ANTIGEN Negative (Negative)
[2021-10-11 16:31] LABS: CREATININE FOR GFR 1.49 MG/DL (0.55-1.30); GLOMERULAR FILTRATION RATE 36.1 (>39); POTASSIUM SERUM 3.9 MEQ/L (3.5-5.1)
[2021-10-11] MEDS: ADVAIR HFA 230/21MCG INHALER INH SCH (18:13)
[2021-10-11 19:14] LABS: CALCIUM LEVEL 7.7 MG/DL (8.8-10.2); CREATININE FOR GFR 1.49 MG/DL (0.55-1.30); GLOMERULAR FILTRATION RATE 36.1 (>39); POTASSIUM SERUM 3.6 MEQ/L (3.5-5.1)
[2021-10-11] MEDS: ATORVASTATIN 20 MG TAB PO SCH (20:25)
[2021-10-11] MEDS ORDERED: GABAPENTIN 100 MG CAP PO SCH (21:00)
[2021-10-11 22:00] VITALS: BP 142/70
[2021-10-12] MEDS: SODIUM BICARBONATE 50 MEQ in D5W/0.45% SODIUM CHLORIDE 1,000 ML IV SCH (01:15)
[2021-10-12 06:09] VITALS: BP 146/70
[2021-10-12 06:21] LABS: HEMATOCRIT 25.7 % (36.0-47.0); HEMOGLOBIN 8.5 g/dl (12.0-15.5); MEAN CORPUSCULAR HEMOGLOBIN 31.5 pg (27.0-33.0); MEAN CORPUSCULAR HGB CONC 33.1 g/dl (32.0-36.5); MEAN CORPUSCULAR VOLUME 95.2 fl (80.0-96.0); PLATELET COUNT, AUTOMATED 176 10^3/uL (150-450); WHITE BLOOD COUNT 14.5 10^3/uL (4.0-10.0)
[2021-10-12 06:46] LABS: LYMPHOCYTES 12 % (16-44); METAMYELOCYTES 1 % (0-0); MONOCYTES 7 % (0-5); NEUTROPHILS 80 % (28-66); PLATELET ESTIMATE NORMAL (NORMAL)
[2021-10-12 06:51] LABS: CALCIUM LEVEL 7.6 MG/DL (8.8-10.2); CREATININE FOR GFR 1.49 MG/DL (0.55-1.30); GLOMERULAR FILTRATION RATE 36.1 (>39); POTASSIUM SERUM 3.8 MEQ/L (3.5-5.1)
[2021-10-12] MEDS: ADVAIR HFA 230/21MCG INHALER INH SCH (07:28)
[2021-10-12] MEDS: TAMSULOSIN 0.4 MG CAP PO SCH (08:35)
[2021-10-12] MEDS: HumaLOG INSULIN (NovoLOG) PER UNIT SC SCH ×2 (08:35→12:56)
[2021-10-12 08:36] VITALS: BP 146/71
[2021-10-12] MEDS: amLODIPine 5 MG TAB PO SCH (08:36)
[2021-10-12] MEDS: OMEPRAZOLE 20 MG CAP PO SCH (08:36)
[2021-10-12] MEDS: FERROUS GLUCONATE 324 MG TAB PO SCH (08:36)
[2021-10-12] MEDS: NEBIVOLOL 5 MG TAB (BYSTOLIC) PO SCH (08:36)
[2021-10-12] MEDS: MONTELUKAST 10 MG TAB PO SCH (08:36)
[2021-10-12] MEDS: TOPIRAMATE (TopAMAX) 25 MG TAB PO SCH (08:36)
[2021-10-12] MEDS: RIVAROXABAN 15 MG TAB (XARELTO) PO SCH (08:36)
[2021-10-12] MEDS: LACTOBACILLUS ACIDOPHILUS CAP (BACID) PO SCH ×2 (08:36→12:56)
[2021-10-12] MEDS: BRIMONIDINE 0.1% OPHTH SOLN 5 ML OU SCH (08:36)
[2021-10-12] MEDS ORDERED: LEVO750T13 PO (08:46)
[2021-10-12 11:22] LABS: HEMATOCRIT 25.6 % (36.0-47.0); HEMOGLOBIN 8.3 g/dl (12.0-15.5)
--- NOTE | 2021-10-12 11:51 | DS.PDOC ---
Discharge Summary General Date of Admission Oct 07, 2021 at 13:10 Date of Discharge 10/12/2021 Discharge Summary PROCEDURES PERFORMED DURING STAY: [None]. ADMITTING DIAGNOSES / DISCHARGE DIAGNOSES: Acute R sided pyelonephritis w/ obstructive uropathy Bacteremia - likely 2/2 Klebsiella - likely 2/2 UTI Leukocytosis - likely 2/2 bacteremia, R sided pyelonephritis, possibly 2/2 CAP? s/p Acute rhabdomyolysis LAURI on CKD3 NAG Metabolic acidosis - possibly 2/2 diarrhea Chronic Diastolic CHF 4mm Ureterovesical junction stone Hx of CVA / Hx of CAD (Hx of DC) HTN DM2 Dysphagia Hx of PE (03/2021) Iron deficiency anemia Fall / Debility GI prophylaxis DVT prophylaxis COMPLICATIONS/CHIEF COMPLAINT: Confusion / Kidney stones / UTI HISTORY OF PRESENT ILLNESS: Patient is a 76 year old female with a PMHx of HTN, Diastolic CHF, CAD (Hx of DC), DLP, Hx of CVA, Hx of PE, COPD / Asthma, DM2, CKD3, GERD who presented to the ER on 10/07 after she had fallen and was unable to get up in the emergency room, patient was found to have a severe urinary tract infection/pyelonephritis and she was admitted to the hospitalist service for further evaluation and treatment. Patient was seen and examined at the bedside. Patient was seen ambulating in her room and getting dressed. Patient denies any chest pain, shortness of breath or palpitations. Has not experience any nausea, vomiting, abdominal pain. Patient denies any urinary discomfort, has been able to urinate on her own after the Joel catheter was discontinued. Patient had a small smear-like bowel movement this morning. HOSPITAL COURSE: Acute R sided pyelonephritis w/ obstructive uropathy - Patient currently remains asymptomatic and denies any abdominal discomfort, or urinary discomfort - Physicals without any abdominal tenderness or CVA tenderness - Afebrile and hemodynamically stable - Leukocytosis has improved / CRP downtrending - Imaging noted above - c/w Levofloxacin; s/p Cefdinir and Doxycycline; s/p Zosyn (Antibiotic day #6) - will complete antibiotic course as an outpatient - Will DC IV Fluid hydration - Left outpatient follow-up with primary care provider, and urology within the next 7 days Bacteremia - likely 2/2 Klebsiella - likely 2/2 UTI - c/w Antibiotics (See above) Leukocytosis - likely 2/2 bacteremia, R sided pyelonephritis, possibly 2/2 CAP? - Patient denies any significant cough - Saturating well on room air - c/w Antibiotics (See above) s/p Acute rhabdomyolysis - c/w IV fluid hydration LAURI on CKD3 - Baseline Cr of 1.2 - Creatinine has continued to trend down - Will discontinue nephrotoxic medications at this time (Stopped NISHA-I, Metformin) - c/w IV fluid hydration; will adjust NAG Metabolic acidosis - possibly 2/2 diarrhea - No lactic acidosis - No further episodes of diarrhea noted - c/w Probiotics - s/p Fluids Chronic Diastolic CHF - Currently does not have any signs of fluid overload - Not on any diuretic therapy as an outpatient 4mm Ureterovesical junction stone - Initial hospitalist had discussed with urology; recommended no cystoscopy and instructed to continue with IV fluid hydration - c/w Tamsulosin - s/p Joel catheter; has been urinating on her own - Will have outpatient follow-up with urology within the next 7 days Hx of CVA / Hx of CAD (Hx of DC) - Denies any chest pain, shortness breath or palpitations - c/w Atorvastatin HTN - BP well controlled - c/w Amlodipine / Nebivolol DM2 - c/w ISS Dysphagia - Speech therapy on consultation; adjustments to diet based on their recommendations Hx of PE (03/2021) - c/w Xarelto Iron deficiency anemia - Hg has trended down; this is likely hemodilution given her continued IV fluid hydraiton - No evidence of bleeding; no blood in urine or stool - c/w Ferrous gluconate - No indication for transfusion at this time Fall / Debility / Tremors - Patient follows with neurology for her tremors - c/w PT and OT; patient is been cleared for discharge home with services GI prophylaxis - c/w Omeprazole DVT prophylaxis - c/w full anticoagulation with Xarelto DISCHARGE MEDICATIONS: Please see below. ALLERGIES: Please see below. PHYSICAL EXAMINATION ON DISCHARGE: Vitals (See below) General: Again, patient has been ambulating in the room on her own with walker, does not appear to be in any discomfort, awake/alert, oriented x3 HEENT: AT, NC CVS: +S1S2 Lungs: Air entry appears to be fair bilaterally, unlabored. No wheezing or rhonchi appreciated Abdomen: Abdomen remains soft without any tenderness appreciated Extremities: No appreciable edema LABORATORY DATA: Please see below. IMAGING: CT cervical spine 10/07: Moderate to advanced multilevel degenerative spondylosis. No evidence for acute pathology or trauma/injury. CXR 10/07: Bibasilar airspace disease with small right pleural effusion. Femur XR 10/07: Limited examination without evidence for acute fracture to the visualized osseous structures. CT head 10/07: Atrophy and chronic microvascular ischemic changes. No acute intracranial hemorrhage, infarction, or mass/mass effect. XR knee 10/07: Moderate tricompartmental osteoarthritic degenerative changes. No obvious acute fracture or dislocation. XR Pelvis 10/07: Degenerative changes. No acute fracture or dislocation. XR Tib/Fib 10/07: No acute fracture or dislocation. XR hip 10/07: Degenerative changes. No acute fracture or dislocation. CT abdomen / pelvis 10/07: 1. Acute right-sided obstructive uropathy with a 4 mm obstructing calculus at the ureterovesical junction. 2. Moderate bibasilar atelectasis and small right pleural effusion. 3. Nonacute findings as described above. CXR 10/09: Small bilateral pleural effusions with bibasilar atelectasis and left lower lobe consolidation appears increased from prior examination. Renal US 10/10: No hydronephrosis. Bilateral solitary anechoic structures likely representing complex cysts. Consider pre and postcontrast CT of the abdomen for confirmation. ACTIVITY: [As tolerated]. DISCHARGE PLAN: Follow-up with primary care provider, and urology within the next 7 days Remain compliant with treatment plan and medications Return to the ER if you experience any problems DISPOSITION: Home with services DISCHARGE CONDITION: [Stable]. TIME SPENT ON DISCHARGE: 35 minutes. Vital Signs/I&Os Vital Signs Date Time Temp Pulse Resp B/P (MAP) Pulse Ox O2 Delivery O2 Flow Rate FiO2 10/12/21 08:36 89 146/71 10/12/21 06:09 97.9 20 96 Room Air 10/09/21 16:01 I&O- Last 24 Hours up to 6 AM 10/12/21 06:00 Intake Total 2640 ml Output Total 2075 ml Balance 565 ml Laboratory Data Labs 24H Laboratory Tests 2 10/11/21 12:08: Urine Random Creatinine 41.3, Urine Random Sodium 83, Urine Random Potassium 13.5, Urine Random Chloride 78 10/11/21 15:37: Anion Gap 8, Glomerular Filtration Rate 36.1L, Calcium Level 8.0L 10/11/21 17:05: Bedside Glucose (Misc Panel) 145H 10/11/21 18:40: Anion Gap 8, Glomerular Filtration Rate 36.1L, Calcium Level 7.7L 10/11/21 20:20: Bedside Glucose (Misc Panel) 114H 10/12/21 06:11: Immature Granulocyte % (Auto) , Neutrophils (%) (Auto) , Nucleated Red Blood Cells % (auto) 0.0, Neutrophils 80H, Lymphocytes (Manual) 12L, Monocytes (Manual) 7H, Metamyelocytes 1H, Red Blood Cell Morphology NORMAL, Platelet Estimate NORMAL, Anion Gap 6L, Glomerular Filtration Rate 36.1L, Calcium Level 7.6L 10/12/21 10:59: Bedside Glucose (Misc Panel) 209H CBC/BMP Laboratory Tests 10/11/21 15:37 10/11/21 18:40 10/12/21 06:11 10/12/21 11:00 FSBS Laboratory Tests Test 10/11/21 17:05 10/11/21 20:20 10/12/21 10:59 Range/Units Bedside Glucose (Misc Panel) 145 114 209 83-110 MG/DL Microbiology Microbiology 10/08/21 Blood Culture - Preliminary, Resulted No Growth after 72 hours. All specime... 10/08/21 Blood Culture - Preliminary, Resulted No Growth after 72 hours. All specime... 10/07/21 Urine Culture - Final, Complete Klebsiella Pneumoniae 10/07/21 Urine Culture - Final, Complete Escherichia Coli 10/07/21 Blood Culture - Final, Complete Klebsiella Pneumoniae 10/07/21 Blood Culture - Final, Complete Klebsiella Pneumoniae Discharge Medications Scheduled Amlodipine Besylate (Amlodipine Besylate) 5 Mg Tab, 5 MG PO DAILY, (Reported) Atorvastatin Calcium (Atorvastatin Calcium) 20 Mg Tab, 20 MG PO QHS, (Reported) Bimatoprost (Lumigan) 0.01% 2.5ML Drops, 1 DROP OU QHS, (Reported) Brimonidine Tartrate (Alphagan P) 0.1% 5ML Drops, 1 DROP OU BID, (Reported) Calcium Carbonate/Vitamin D3 (Oyster Shell 500-Vit D3 200 Tb) 1 Each Tablet, 1 TAB PO BID, (Reported) Ferrous Gluconate (Ferrous Gluconate) 324 Mg Tab, 324 MG PO DAILY, (Reported) Gabapentin (Gabapentin) 100 Mg Capsule, 100 MG PO QHS, (Reported) Glipizide (Glipizide Xl) 2.5 Mg Tab.er.24, 1 TAB PO DAILY L.acidoph/L.bulg/B.bif/S.therm (Mary [place]-Bid Caplet) 1 Each Tablet, 1 EA PO WMHS Levofloxacin (Levofloxacin) 750 Mg Tablet, 750 MG PO Q2D@0600 To start on 10/13/2021 Montelukast Sodium (Singulair) 10 Mg Tab, 10 MG PO DAILY, (Reported) Nebivolol HCl (Bystolic) 5 Mg Tab, 5 MG PO DAILY, (Reported) Omeprazole (Omeprazole) 20 Mg Capsule.dr, 20 MG PO QAM, (Reported) Rivaroxaban (Xarelto) 20 Mg Tablet, 20 MG PO DAILY, (Reported) Salmeterol/Fluticasone (Advair 500-50 Diskus) 1 Each Blst.w.dev, 1 PUFF INH BID, (Reported) Tamsulosin HCl (Flomax) 0.4 Mg Capsule, 0.4 MG PO DAILY Topiramate (Topiramate) 50 Mg Tab, 50 MG PO BID, (Reported) Vit C/E/Zn/Coppr/Lutein/Zeaxan (Preservision Areds 2 Softgel) 1 Each Capsule, 1 EACH PO BID, (Reported) Scheduled PRN Acetaminophen (Acetaminophen) 325 Mg Tablet, 650 MG PO Q6H PRN for PAIN, (Reported) Ipratropium [place] (Ipratropium [place]) 30 Ml [place], 2 SPRAY NARES TID PRN for RUNNY NOSE, (Reported) Levalbuterol Hydrochloride (Xopenex Hfa) 45 Mcg/Act Aer, 1 PUFF INH Q6H PRN for SHORTNESS OF BREATH, (Reported) Miscellaneous Medications [PT Comment] , (Reported) Unable to confirm meds with pt or family. Med rec acquired from external med hx Allergies Coded Allergies: Sulfa (Sulfonamide Antibiotics) (Verified Allergy, Intermediate, hives, 05/21/19) ibuprofen (Verified Allergy, Intermediate, hives, 05/21/19) aspirin (Verified Allergy, Mild, rash, 05/21/19) bezafibrate (Verified Allergy, Mild, rash, 05/21/19) hydrocodone (Verified Allergy, Mild, rash, 05/21/19) meloxicam (Verified Allergy, Mild, rash, 05/21/19) propoxyphene (Verified Allergy, Mild, rash, 05/21/19) valdecoxib (Verified Allergy, Mild, rash, 05/21/19) CHATA HILL MD Oct 12, 2021 11:51
--- NOTE | 2021-10-13 09:31 | ECHO ---
ECHOCARDIOGRAM DATE OF PROCEDURE: 10/10/2021 Age: 76 Gender: F Height: 165 cm Weight: 62 kg REFERRING PHYSICIAN: Dr. Sandra Sprague PATIENT LOCATION: Room 4216 REASON FOR TESTING: Shortness of breath. MEASUREMENTS: 2D MEASUREMENTS: IVS 1.2 cm LV 4.5 cm LVPW 0.9 cm LA 3.8 cm Aorta 3.1 cm IVC 1.5 cm DOPPLER MEASURMENTS: Peak velocity across the aortic valve 0.99 m/s Peak velocity across the LVOT 0.74 m/s Mitral E 1.25, mitral A 1.25 with a ratio of 1.0 Maximum tricuspid valve velocity 2.7 m/s 2D COMMENTS: 1. Normal left ventricular size, wall thickness, and low-normal global left ventricular (LV) systolic function. The estimated left ventricular (LV) systolic function is 50% to 55%. 2. Subjectively, the left atrium appeared to be mildly enlarged. Normal right atrium and right ventricle. 3. The atrial septum appeared to be normal without evidence of defect or shunt. 4. Normal aortic root. 5. No pericardial effusion seen. 6. Mildly calcified aortic valve with normal leaflet excursion. Mildly calcified mitral annulus with normal anterior mitral valve leaflet motion. Normal tricuspid valve and pulmonic valve. The proximal pulmonary artery branches also appear to be normal in size. 7. The inferior vena cava was normal in size, central venous pressure is most likely normal. DOPPLER: It detects mild aortic regurgitation, mild to moderate mitral regurgitation, and mild tricuspid regurgitation. The calculated pulmonary artery systolic pressure varies between 30-40 mmHg. Assessment of the left ventricular diastolic function was non-diagnostic. IMPRESSION: 1. Low-normal global left ventricular systolic function. Assessment of the left ventricular diastolic function was nonconclusive. 2. Aortic valve sclerosis with mild aortic regurgitation but no aortic stenosis. 3. Mitral annulus calcification with mild to moderate mitral regurgitation. 4. Mild tricuspid regurgitation with mild pulmonary hypertension.
== END 2021-10-12 14:05 | disposition home or self-care (01) | DRG 871 ==
LOC: EDBD 10:48 → M ED 10:48 → M ED INP 13:10 → ENRESERV 15:10 → M PCU 15:10 → M MSPAV 10-09 15:59
PROVIDERS: ADMIT General Practice; ATTEND Internal Medicine
DX: A41.89 Other specified sepsis (principal); J18.9 Pneumonia, unspecified organism; E87.2 Acidosis; M62.82 Rhabdomyolysis; N13.6 Pyonephrosis; N17.9 Acute kidney failure, unspecified; I50.32 Chronic diastolic (congestive) heart failure; I13.0 Hypertensive heart and chronic kidney disease with heart failure and stage 1 through stage 4 chronic kidney disease, or unspecified chronic kidney disease; I25.10 Atherosclerotic heart disease of native coronary artery without angina pectoris; N18.30 Chronic kidney disease, stage 3 unspecified; J44.9 Chronic obstructive pulmonary disease, unspecified; E11.22 Type 2 diabetes mellitus with diabetic chronic kidney disease; I25.2 Old myocardial infarction; N28.1 Cyst of kidney, acquired; I70.0 Atherosclerosis of aorta; J45.909 Unspecified asthma, uncomplicated; H40.9 Unspecified glaucoma; R19.7 Diarrhea, unspecified; E78.5 Hyperlipidemia, unspecified; R53.81 Other malaise; D50.9 Iron deficiency anemia, unspecified; D63.8 Anemia in other chronic diseases classified elsewhere; R53.1 Weakness; K21.9 Gastro-esophageal reflux disease without esophagitis; R13.10 Dysphagia, unspecified; Z90.49 Acquired absence of other specified parts of digestive tract; Z98.49 Cataract extraction status, unspecified eye; Z86.711 Personal history of pulmonary embolism; Z20.822 Contact with and (suspected) exposure to COVID-19; Z79.84 Long term (current) use of oral hypoglycemic drugs; Z79.899 Other long term (current) drug therapy; Z88.2 Allergy status to sulfonamides; Z88.6 Allergy status to analgesic agent; Z86.73 Personal history of transient ischemic attack (TIA), and cerebral infarction without residual deficits; Z88.5 Allergy status to narcotic agent; Z88.8 Allergy status to other drugs, medicaments and biological substances; Z86.14 Personal history of Methicillin resistant Staphylococcus aureus infection

== ENCOUNTER → 2021-10-17 | Outpatient (REF) | payer MEDICARE, MEDICAID ==
[~2021-10-17] MED LIST changes: +CEFD300CAP PO; +FLOM0.4C39 PO; +GLIP-163 PO; +GLYB125TA PO; +IPRA3SP NARES; +LEVO750T13 PO; +PT COMMENT; +RISATAB3 PO; +XARE20TA PO
[2021-10-17 16:46] LABS: CALCIUM LEVEL 9.8 MG/DL (8.8-10.2); CREATININE FOR GFR 1.88 MG/DL (0.55-1.30); GLOMERULAR FILTRATION RATE 27.6 (>39); POTASSIUM SERUM 4.1 MEQ/L (3.5-5.1)
== END ==
LOC: M WUC 15:42
PROVIDERS: ATTEND Nurse Practitioner Women's Health
DX: N28.1 Cyst of kidney, acquired (principal)

== ENCOUNTER → 2021-10-20 | Outpatient (CLI) | payer MEDICARE, MEDICAID ==
[~2021-10-20] MED LIST changes: +LOSA100T45 PO; -LOSA100T50 PO
== END ==
LOC: M RAD 14:21
PROVIDERS: ATTEND Nurse Practitioner Women's Health
DX: N28.1 Cyst of kidney, acquired (principal); N13.2 Hydronephrosis with renal and ureteral calculous obstruction; N39.0 Urinary tract infection, site not specified

== ENCOUNTER → 2022-04-11 | Outpatient (REF) | payer MEDICARE, MEDICAID ==
[~2022-04-11] MED LIST changes: +OMEP-173 PO; -OMEP-218 PO
== END ==
LOC: M LAB REF 11:59
PROVIDERS: ATTEND Family Medicine
DX: E83.52 Hypercalcemia (principal)

== ENCOUNTER → 2022-05-11 | Outpatient (REF) | payer MEDICARE, MEDICAID ==
[~2022-05-11] MED LIST changes: +LEVO1TAB40 PO; -LEVO750T13 PO
[2022-05-11 12:51] LABS: TOTAL PROTEIN 6.9 GM/DL (6.4-8.2)
[2022-05-16 10:33] LABS: ALBUMIN % 55.9 % (55.8-66.1); ALPHA-1-GLOBULIN % 4.5 % (2.9-4.9)
[2022-05-16 10:34] LABS: ALBUMIN 3.86 GM/DL (3.29-5.55); ALPHA-1-GLOBULINS 0.31 GM/DL (0.17-0.41); ALPHA-2-GLOBULINS 0.76 GM/DL (0.42-0.99); BETA-1-GLOBULINS 0.41 GM/DL (0.28-0.60); BETA-2-GLOBULINS 0.35 GM/DL (0.19-0.55); GAMMA GLOBULIN % 17.6 % (11.1-18.8); GAMMA GLOBULINS 1.21 GM/DL (0.65-1.58)
== END ==
LOC: M LAB REF 11:49
PROVIDERS: ATTEND Family Medicine
DX: E83.52 Hypercalcemia (principal)

== ENCOUNTER → 2022-05-30 | Outpatient (CLI) | payer MEDICARE, MEDICAID | LOC: M RAD 10:13 | PROVIDERS: ATTEND Nurse Practitioner Women's Health | DX: N28.1 Cyst of kidney, acquired (principal) ==

== ENCOUNTER → 2022-06-29 | Outpatient (CLI) | payer MEDICARE, MEDICAID ==
[2022-06-29 17:39] LABS: BASO # 0.1 10^3/uL (0.0-0.2); BASO % 0.3 % (0.0-1.0); EOS # 2.4 10^3/uL (0.0-0.5); EOS % 15.7 % (0.0-3.0); HEMATOCRIT 35.9 % (36.0-47.0); HEMOGLOBIN 11.2 g/dl (12.0-15.5); LYMPH # 1.7 10^3/uL (1.5-5.0); MEAN CORPUSCULAR HEMOGLOBIN 32.1 pg (27.0-33.0); MEAN CORPUSCULAR HGB CONC 31.2 g/dl (32.0-36.5); MEAN CORPUSCULAR VOLUME 102.9 fl (80.0-96.0); MONO # 1.2 10^3/uL (0.0-0.8); MONO % 7.7 % (2.0-8.0); NEUTROPHILS # 9.7 10^3/uL (1.5-8.5); NEUTROPHILS % 64.6 % (36.0-66.0); PLATELET COUNT, AUTOMATED 128 10^3/uL (150-450); RED BLOOD COUNT 3.49 10^6/uL (4.00-5.40)
[2022-06-29 18:02] LABS: ALBUMIN 3.5 GM/DL (3.2-5.2); ALT/SGPT 24 U/L (12-78); BILIRUBIN,TOTAL 0.2 MG/DL (0.2-1.0); BLOOD UREA NITROGEN 37 MG/DL (7-18); C REACTIVE PROTEIN QUANTITATIV 1.36 MG/DL (0.00-0.30); CALCIUM LEVEL 9.5 MG/DL (8.8-10.2); CARBON DIOXIDE LEVEL 26 MEQ/L (21-32); CHLORIDE LEVEL 102 MEQ/L (98-107); COMPLEMENT C3 155 MG/DL (90-180); COMPLEMENT C4 34 MG/DL (10-40); CREATININE FOR GFR 1.75 MG/DL (0.55-1.30); FREE T4 0.88 NG/DL (0.76-1.46); GLOMERULAR FILTRATION RATE 29.9 (>39); GLUCOSE, FASTING 137 MG/DL (70-100); IMMUNOGLOBULIN G 1360 MG/DL (681-1648); IMMUNOGLOBULIN M 44.7 MG/DL (40-230); POTASSIUM SERUM 4.4 MEQ/L (3.5-5.1); RHEUMATOID FACTOR QUANT < 10.0 IU/ML (<15.0); SODIUM LEVEL 133 MEQ/L (136-145); TOTAL PROTEIN 7.3 GM/DL (6.4-8.2)
[2022-06-29 18:15] LABS: ERYTHROCYTE SEDIMENTATION RATE 39 mm/hr (0-30)
[2022-06-29 18:48] LABS: THYROID PEROXIDASE ANTIBODY < 28.0 U/ML (<60.0)
[2022-07-03 13:01] LABS: ALBUMIN 4.12 GM/DL (3.29-5.55); ALBUMIN % 56.5 % (55.8-66.1); ALPHA-1-GLOBULIN % 5.1 % (2.9-4.9); ALPHA-1-GLOBULINS 0.37 GM/DL (0.17-0.41); ALPHA-2-GLOBULINS 0.82 GM/DL (0.42-0.99); ALPHA-2-GLOBULINS % 11.2 % (7.1-11.8); BETA-1-GLOBULINS % 5.4 % (4.7-7.2); GAMMA GLOBULIN % 16.8 % (11.1-18.8)
[2022-07-03 13:02] LABS: BETA-1-GLOBULINS 0.39 GM/DL (0.28-0.60); BETA-2-GLOBULINS 0.37 GM/DL (0.19-0.55); GAMMA GLOBULINS 1.23 GM/DL (0.65-1.58)
== END ==
LOC: M LAB 16:41
PROVIDERS: ATTEND Nurse Practitioner Family
DX: L28.0 Lichen simplex chronicus (principal); Z79.899 Other long term (current) drug therapy

== ENCOUNTER → 2022-07-12 | Outpatient (REF) | payer MEDICARE, MEDICAID ==
[2022-07-12 17:56] LABS: BACTERIA, URINE LARGE AMOUNT; HYALINE CAST, URINE NONE SEEN /lpf (0-1); MUCUS, URINE SMALL AMOUNT (NEGATIVE); RBC, URINE NONE SEEN /hpf (0-3); SQUAMOUS EPITHELIAL CELL URINE SMALL AMOUNT /hpf (SMALL AMT); WBC, URINE 15-20 /hpf (0-3)
== END ==
LOC: M LAB REF 17:21
PROVIDERS: ATTEND Internal Medicine Nephrology
DX: R30.0 Dysuria (principal)

== ENCOUNTER → 2022-07-17 | Outpatient (CLI) | payer MEDICARE, MEDICAID | LOC: M SOG 08:29 | PROVIDERS: ATTEND Orthopaedic Surgery | DX: M19.031 Primary osteoarthritis, right wrist (principal) ==

== ENCOUNTER → 2022-07-23 | Outpatient (CLI) | payer MEDICARE, MEDICAID | LOC: M LAB 10:50 | PROVIDERS: ATTEND Nurse Practitioner Family | DX: L12.0 Bullous pemphigoid (principal) ==

== ENCOUNTER → 2022-07-26 | Outpatient (REF) | payer MEDICARE, MEDICAID ==
[2022-07-30 17:46] LABS: IRON (FE) 42 UG/DL (50-170); PERCENT SATURATION 13.5 % (13.2-45.0); TOTAL IRON BINDING CAPACITY 311 UG/DL (250-450)
[2022-07-30 18:25] LABS: VITAMIN B12 LEVEL > 2000 PG/ML (247-911)
== END ==
LOC: M LAB REF 16:34
PROVIDERS: ATTEND Family Medicine
DX: D64.9 Anemia, unspecified (principal)

== ENCOUNTER → 2022-07-30 | Outpatient (CLI) | payer MEDICARE ==
[2022-07-30 19:26] LABS: HEPATITIS B CORE ANTIBODY IGM NEGATIVE (NEGATIVE); HEPATITIS B SURFACE ANTIGEN NEGATIVE (NEGATIVE); HEPATITIS C VIRUS ABY INDEX < 0.0 INDEX (<0.8); HIV 1&2 SCREEN CENTAUR NEGATIVE (NEGATIVE)
== END ==
LOC: M LAB 16:25
PROVIDERS: ATTEND Nurse Practitioner Family
DX: L12.0 Bullous pemphigoid (principal)

== ENCOUNTER → 2022-08-29 | Outpatient (REF) | payer MEDICARE, MEDICAID ==
[~2022-08-29] MED LIST changes: +ACID1CAP5 PO; +MULT400T10 PO
[2022-08-29 18:01] LABS: PERCENT SATURATION 10.2 % (13.2-45.0)
== END ==
LOC: M LAB REF 16:20
PROVIDERS: ATTEND Family Medicine
DX: D64.9 Anemia, unspecified (principal)

== ENCOUNTER → 2022-09-05 | Outpatient (CLI) | payer MEDICARE, MEDICAID | LOC: M LABSMTC 09:56 | PROVIDERS: ATTEND Anesthesiology | DX: Z01.812 Encounter for preprocedural laboratory examination (principal); Z20.822 Contact with and (suspected) exposure to COVID-19 ==

== ENCOUNTER 2022-09-10 06:18 | Day surgery (SDC) | payer MEDICARE, MEDICAID ==
[~2022-09-10] VITALS: Ht 149.9 cm; Wt 65.5 kg
[2022-09-10] MEDS ORDERED: LR 1,000 ML IV SCH (06:25)
[2022-09-10] MEDS ORDERED: oxyCODONE 5MG TAB PO ONE (06:30)
[2022-09-10] MEDS ORDERED: ceFAZolin SOD 2 GM in IV 1 EA IV ONE (06:30)
[2022-09-10] MEDS ORDERED: BUPIVACAINE HCL 0.5% 30ML VIAL As Ordered ONE (07:15)
[2022-09-10] MEDS ORDERED: propofoL 200 MG/20 ML VIAL As Ordered ONE ×2 (07:15→08:21)
[2022-09-10] MEDS ORDERED: LIDOCAINE 2% 100MG/5ML SDV (FOR ANES.) As Ordered ONE (07:15)
[2022-09-10] MEDS ORDERED: MIDAZOLAM INJ 2MG/2ML VIAL (J2250 PER 1MG) As Ordered ONE (07:15)
[2022-09-10] MEDS ORDERED: LIDOCAINE 1% SDV 30ML VIAL As Ordered ONE (07:15)
[2022-09-10] MEDS ORDERED: fentaNYL 100 MCG/2 ML INJECTION As Ordered ONE (07:15)
[2022-09-10] MEDS ORDERED: BUPIVACAINE/EPIN 0.5% 30 ML VIAL As Ordered ONE (07:15)
[2022-09-10 09:15] VITALS: BP 153/76
== END 2022-09-10 09:22 | disposition home or self-care (01) ==
LOC: M SDC 06:18
PROVIDERS: ATTEND Orthopaedic Surgery
DX: G56.01 Carpal tunnel syndrome, right upper limb (principal); E11.9 Type 2 diabetes mellitus without complications; I25.2 Old myocardial infarction; I10 Essential (primary) hypertension; E78.00 Pure hypercholesterolemia, unspecified; D64.9 Anemia, unspecified; M19.90 Unspecified osteoarthritis, unspecified site; Z86.73 Personal history of transient ischemic attack (TIA), and cerebral infarction without residual deficits; J44.9 Chronic obstructive pulmonary disease, unspecified; J45.909 Unspecified asthma, uncomplicated; Z79.899 Other long term (current) drug therapy; Z79.01 Long term (current) use of anticoagulants; Z79.82 Long term (current) use of aspirin; Z79.891 Long term (current) use of opiate analgesic; Z88.2 Allergy status to sulfonamides; Z88.5 Allergy status to narcotic agent; Z88.8 Allergy status to other drugs, medicaments and biological substances; Z88.6 Allergy status to analgesic agent
CPT/HCPCS: 64721; J0690; J2250; J3010

== ENCOUNTER → 2023-04-02 | Outpatient (CLI) | payer MEDICARE ==
[~2023-04-02] MED LIST changes: -LOSA100T45 PO; +LOSA100T46 PO; +MONT-5 PO; -SING10TA32 PO; +TOPI-254 PO; -TOPI50TA9 PO
== END ==
LOC: M RAD 09:16
PROVIDERS: ATTEND Physician Assistant
DX: M79.602 Pain in left arm (principal)

== ENCOUNTER → 2023-06-03 | Outpatient (REF) | payer MEDICARE, MEDICAID | LOC: M LAB REF 16:36 | PROVIDERS: ATTEND Family Medicine | DX: D64.9 Anemia, unspecified (principal) ==

== ENCOUNTER → 2023-06-28 | Outpatient (CLI) | payer MEDICARE, MEDICAID | LOC: M WHC 13:41 | PROVIDERS: ATTEND Family Medicine | DX: Z12.31 Encounter for screening mammogram for malignant neoplasm of breast (principal) ==

== ENCOUNTER → 2024-01-14 | Outpatient (REF) | payer MEDICARE, MEDICAID ==
[~2024-01-14] MED LIST changes: +DOCU240C9 PO; +DUPI300I SC; +FERR324T21 PO; +LEVOTAB10 PO; +POTA10808 PO; +TOPI-21 PO; -TOPI-254 PO; +TUMS500C PO
[2024-01-15 17:33] LABS: AMORPHOUS SEDIMENT SMALL (NEGATIVE); BACTERIA, URINE AUTO NEGATIVE (NEGATIVE); RBC, URINE AUTO 2 /HPF (0-3); SQUAMOUS EPITHELIAL CELL UR AU 2 /HPF (0-6); TRIPLE PHOSPHATE CRYSTALS MODERATE; WBC, URINE AUTO 9 /HPF (0-3)
== END ==
LOC: M LAB REF 17:02
PROVIDERS: ATTEND Internal Medicine Nephrology
DX: N30.00 Acute cystitis without hematuria (principal)

== ENCOUNTER → 2024-02-26 | Outpatient (REF) | payer MEDICARE, MEDICAID | LOC: M LAB REF 11:48 | PROVIDERS: ATTEND Family Medicine | DX: D64.9 Anemia, unspecified (principal) ==

== ENCOUNTER → 2024-07-23 | Outpatient (CLI) | payer MEDICARE, MEDICAID ==
[~2024-07-23] MED LIST changes: +BYST1TAB2 PO; -BYST5TAB2 PO; +GASTROGRAFIN SOLUTION 30ML As Ordered ONE; +ISOVUE-370 76% 100ML VIAL As Ordered ONE
== END ==
LOC: M RAD 08:44
PROVIDERS: ATTEND Nurse Practitioner
DX: R10.9 Unspecified abdominal pain (principal)
CPT/HCPCS: 74177; Q9963; Q9967

== ENCOUNTER → 2024-09-29 | Outpatient (REF) | payer MEDICARE, MEDICAID ==
[~2024-09-29] MED LIST changes: -GASTROGRAFIN SOLUTION 30ML As Ordered ONE; -ISOVUE-370 76% 100ML VIAL As Ordered ONE; +LEVA15HF2 INH; -LEVAINH INH; +POTA10807 PO; -POTA10808 PO
== END ==
LOC: M LAB REF 12:17
PROVIDERS: ATTEND Family Medicine
DX: N39.0 Urinary tract infection, site not specified (principal)

== ENCOUNTER 2025-06-10 04:39 | Emergency (ER) | payer MEDICARE, MEDICAID ==
[~2025-06-10] VITALS: Ht 152.4 cm; Wt 62.8 kg
[~2025-06-10 04:39] MED LIST changes: -ADV500INH INH; +ADVA1AER10 INH; -BRIM1OPD OU; +BRIM5DRO25 OU; -FLOM0.4C39 PO; +TAMS-18 PO
[2025-06-10 08:11] VITALS: BP 165/74; TEMP 96.9; O2SAT 97
== END 2025-06-10 08:12 | disposition home or self-care (01) ==
LOC: M ED 04:39
DX: R04.0 Epistaxis (principal); S00.93XA Contusion of unspecified part of head, initial encounter; W08.XXXA Fall from other furniture, initial encounter; E11.9 Type 2 diabetes mellitus without complications; I10 Essential (primary) hypertension; J44.9 Chronic obstructive pulmonary disease, unspecified; E78.5 Hyperlipidemia, unspecified; N18.30 Chronic kidney disease, stage 3 unspecified; M47.812 Spondylosis without myelopathy or radiculopathy, cervical region; Z86.79 Personal history of other diseases of the circulatory system; Z88.2 Allergy status to sulfonamides; Z88.6 Allergy status to analgesic agent; Z88.5 Allergy status to narcotic agent; Z88.8 Allergy status to other drugs, medicaments and biological substances; Y92.009 Unspecified place in unspecified non-institutional (private) residence as the place of occurrence of the external cause; Y93.89 Activity, other specified; Y99.9 Unspecified external cause status; Z79.1 Long term (current) use of non-steroidal anti-inflammatories (NSAID); Z79.02 Long term (current) use of antithrombotics/antiplatelets; Z79.899 Other long term (current) drug therapy

== ENCOUNTER 2025-06-13 16:16 | Emergency (ER) | payer MEDICARE, MEDICAID ==
[2025-06-13 17:30] LABS: BASO # 0.1 10^3/uL (0.0-0.2); BASO % 1.0 % (0.0-1.0); EOS # 0.7 10^3/uL (0.0-0.5); EOS % 7.0 % (0.0-3.0); LYMPH # 1.5 10^3/uL (1.5-5.0); LYMPH % 15.0 % (24.0-44.0); MONO # 1.0 10^3/uL (0.0-0.8); MONO % 9.3 % (2.0-8.0); NEUTROPHILS # 6.9 10^3/uL (1.5-8.5); NEUTROPHILS % 67.2 % (36.0-66.0); PLATELET COUNT, AUTOMATED 238 10^3/uL (150-450)
[2025-06-13 17:43] LABS: INR 0.99
[2025-06-13 20:00] VITALS: TEMP 98.3
[2025-06-13 22:00] VITALS: BP 134/77
[2025-06-13 22:01] VITALS: O2SAT 95
== END 2025-06-13 22:35 | disposition home or self-care (01) ==
LOC: M ED 16:16 → EDBD 16:16 → M ED 22:35
DX: R04.0 Epistaxis (principal); Z88.2 Allergy status to sulfonamides; Z88.6 Allergy status to analgesic agent; Z88.5 Allergy status to narcotic agent; Z88.8 Allergy status to other drugs, medicaments and biological substances; Z79.1 Long term (current) use of non-steroidal anti-inflammatories (NSAID); Z79.84 Long term (current) use of oral hypoglycemic drugs; Z79.899 Other long term (current) drug therapy; Z79.01 Long term (current) use of anticoagulants; Z79.810 Long term (current) use of selective estrogen receptor modulators (SERMs)